=== PATIENT | female | born 1965 | race American Indian/Alaskan Native ===

== ENCOUNTER 2016-11-03 16:39 | Inpatient (IN) | payer OTHER ==
--- NOTE | 2016-11-03 17:21 | Event Note ---
Date: 11/03/16 Patient's EKG is reviewed. Demonstrates T-wave inversion in the lateral leads, nonspecific ST abnormality in the inferior leads. A stat right-sided EKG does not demonstrate evidence of inferior wall STEMI. The patient's clinical complaint of chest pain is somewhat concerning, but she has not actually diaphoretic, and has stable vital signs. The EKGs are transmitted to the transportation assistant, Dr. Tam, who agrees that the patient does not meet STEMI/thrombolysis criteria. Patient will be worked up for unstable angina. Has no pulmonary embolus or DVT risk factors is low risk by well's criteria, and has no contraindications to systemic anticoagulation. Cardiology states they can follow as a consult for possible unstable angina. Vital Signs 11/03/16 16:40 Temperature 98.8 F Pulse Rate 89 Respiratory 18 Rate Blood Pressure 191/107 O2 Sat by Pulse 100 Oximetry
[2016-11-03] MEDS ORDERED: ZOFRAN IV ONE (17:38)
[2016-11-03] MEDS ORDERED: NITROSTAT SL PRN (17:38)
[2016-11-03] MEDS ORDERED: MORPHINE IV ONE (17:38)
[2016-11-03] MEDS ORDERED: APRESOLINE IV ONE (17:38)
[2016-11-03] MEDS ORDERED: NACL ONE (17:39)
--- NOTE | 2016-11-03 17:39 | Emergency Department Report ---
ED General Adult HPI - General Chief complaint: Chest Pain Stated complaint: FELT LIKE HAVING HEART ATTACK Time Seen by Provider: 11/03/16 17:38 Source: patient, RN notes reviewed Mode of arrival: Ambulatory Limitations: No Limitations - History of Present Illness Initial comments: This is a 51-year-old female, previously unknown to me. Patient presents to the ER complaining of chest pain. The chest pain is in the left upper chest, radiates to the back, and left upper extremity. It is associated with shortness of breath. Patient missed mild epigastric abdominal pain. She reports a history of pleurisy. She reports a history of abnormal EKG. There is no hematemesis. There is no bright red blood per rectum. No history of intracranial bleeding. She reports that her pain is much improved compared to prior. An initial EKG was morphologically abnormal, right-sided EKG was also morphologically abnormal, but neither EKG was deemed to be consistent with STEMI. The EKGs were specifically transported to the biologist aide on-call, Dr. Tam, who agree that the patient did not meet catheterization lab criteria. He requested aspirin, nitroglycerin, heparin, beta blockers. He specifically did not want a Plavix load. -: Gradual Location: chest Radiation: back Quality: aching Consistency: intermittent Improves with: none Worsens with: none Associated Symptoms: chest pain, loss of appetite, shortness of breath, weakness - Related Data Home Medications Medication Instructions Recorded Confirmed Last Taken AtorvaSTATin 10 mg PO HS 11/03/16 11/03/16 Unknown Metoprolol 50 mg PO BID 11/03/16 11/03/16 Unknown Penicillin Vk 500 mg PO Q6HR 11/03/16 11/03/16 Unknown amLODIPine 10 mg PO DAILY 11/03/16 11/03/16 Unknown metFORMIN 500 mg PO DAILY 11/03/16 11/03/16 Unknown Allergies Allergy/AdvReac Type Severity Reaction Status Date / Time No Known Allergies Allergy Verified 11/03/16 20:09 ED Review of Systems ROS: Stated complaint: FELT LIKE HAVING HEART ATTACK Other details as noted in HPI Constitutional: malaise, weakness Eyes: denies: eye discharge ENT: denies: epistaxis Respiratory: shortness of breath Cardiovascular: chest pain, dyspnea on exertion Gastrointestinal: denies: hematemesis, hematochezia Genitourinary: denies: urgency, dysuria, discharge Musculoskeletal: back pain Skin: denies: lesions Neurological: weakness Psychiatric: anxiety ED Past Medical Hx - Past Medical History Hx Hypertension: Yes Hx Diabetes: Yes (boaderline) Hx Asthma: Yes - Surgical History Additional Surgical History: hysterectomy - Social History Smoking Status: Never Smoker Substance Use Type: Alcohol - Medications Home Medications: Home Medications Medication Instructions Recorded Confirmed Last Taken Type AtorvaSTATin 10 mg PO HS 11/03/16 11/03/16 Unknown History Metoprolol 50 mg PO BID 11/03/16 11/03/16 Unknown History Penicillin Vk 500 mg PO Q6HR 11/03/16 11/03/16 Unknown History amLODIPine 10 mg PO DAILY 11/03/16 11/03/16 Unknown History metFORMIN 500 mg PO DAILY 11/03/16 11/03/16 Unknown History ED Physical Exam - General Limitations: No Limitations General appearance: alert, in no apparent distress - Head Head exam: Present: atraumatic, normocephalic - Eye Eye exam: Present: normal appearance, EOMI. Absent: nystagmus - ENT ENT exam: Present: normal exam, normal orophraynx, mucous membranes moist, normal external ear exam - Neck Neck exam: Present: normal inspection, full ROM. Absent: tenderness, meningismus - Respiratory Respiratory exam: Present: normal lung sounds bilaterally. Absent: respiratory distress, wheezes, rales, rhonchi, stridor, chest wall tenderness - Cardiovascular Cardiovascular Exam: Present: regular rate, normal rhythm, normal heart sounds. Absent: bradycardia, tachycardia, irregular rhythm, systolic murmur, diastolic murmur, rubs, gallop - GI/Abdominal GI/Abdominal exam: Present: soft, tenderness, normal bowel sounds, pulsatile mass. Absent: distended, guarding - Extremities Exam Extremities exam: Present: normal inspection, full ROM, normal capillary refill. Absent: tenderness, pedal edema, joint swelling, calf tenderness - Back Exam Back exam: Present: normal inspection, full ROM. Absent: tenderness, CVA tenderness (R), CVA tenderness (L), muscle spasm, paraspinal tenderness, vertebral tenderness - Neurological Exam Neurological exam: Present: alert, oriented X3, normal gait, other (Extraocular movements intact. Tongue midline. No facial droop. Facial sensation intact to light touch in the V1, V2, V3 distribution bilaterally. 5 and 5 strength in 4 extremities.. Sensation is intact to light touch in 4 extremities.). Absent : motor sensory deficit - Psychiatric Psychiatric exam: Present: normal affect, normal mood - Skin Skin exam: Present: warm, dry, intact, normal color. Absent: rash ED Course Vital Signs 11/03/16 11/03/16 11/03/16 16:40 18:25 18:30 Temperature 98.8 F Pulse Rate 89 84 90 Respiratory 18 16 16 Rate Blood Pressure 191/107 Blood Pressure 151/89 176/113 [Left] O2 Sat by Pulse 100 95 Oximetry 11/03/16 11/03/16 21:28 23:00 Temperature Pulse Rate 74 74 Respiratory 16 16 Rate Blood Pressure Blood Pressure 143/78 149/82 [Left] O2 Sat by Pulse 95 95 Oximetry - Reevaluation(s) Reevaluation #1: 11/03/16 19:51 Differential diagnosis: Acute coronary syndrome, unstable angina, aortic disease /dissection, AAA, pulmonary embolus Assessment and plan: 51-year-old female with abnormal EKG, chest pain, upper abdominal pain, pulsatile abdominal discomfort. D-dimer is negative. Has decreased pain at this time. Cardiology already involved. My bedside ultrasound demonstrates a normal-appearing aorta. An angiogram is ordered and will be interpreted emergently. Assuming negative CT angiogram for aortic disease, patient will be admitted here for presumed acute coronary syndrome. Cardiology involved. We will withhold heparin drip until CT scan has been interpreted. Hospital physician, Dr. Leon, tentatively accepts the patient, assuming no surgical disease dementia noted on CT scan. 11/03/16 19:54 11/03/16 22:13 Reevaluation #2: 11/03/16 22:14 CT scan of the chest, abdomen, pelvis negative for surgical disease. The heparin drip was initiated. Dr. Friedman is going to admit. ED Medical Decision Making - Lab Data Result diagrams: 11/03/16 19:14 11/03/16 17:09 Vital Signs 11/03/16 11/03/16 11/03/16 16:40 18:25 18:30 Temperature 98.8 F Pulse Rate 89 84 90 Respiratory 18 16 16 Rate Blood Pressure 191/107 Blood Pressure 151/89 176/113 [Left] O2 Sat by Pulse 100 95 Oximetry Lab Results 11/03/16 11/03/16 11/03/16 Range/Units 17:09 17:09 17:09 WBC 7.3 (4.5-11.0) K/mm3 RBC 4.26 (3.65-5.03) M/mm3 Hgb 13.1 (10.1-14.3) gm/dl Hct 39.0 (30.3-42.9) % MCV 92 (79-97) fl MCH 31 (28-32) pg MCHC 34 (30-34) % RDW 12.8 L (13.2-15.2) % Plt Count 272 (140-440) K/mm3 Lymph % (Auto) 54.6 H (13.4-35.0) % [place] % (Auto) 7.6 H (0.0-7.3) % Eos % (Auto) 1.3 (0.0-4.3) % Baso % (Auto) 0.9 (0.0-1.8) % Lymph # 4.0 (1.2-5.4) K/mm3 [place] # 0.6 (0.0-0.8) K/mm3 Eos # 0.1 (0.0-0.4) K/mm3 Baso # 0.1 (0.0-0.1) K/mm3 Seg Neutrophils % 35.6 L (40.0-70.0) % Seg Neutrophils # 2.6 (1.8-7.7) K/mm3 PT 13.1 (12.2-14.9) Sec. INR 1.00 (0.87-1.13) APTT 50.5 H (24.2-36.6) Sec. D-Dimer 135.00 (0-234) ng/mlDDU Sodium 141 (137-145) mmol/L Potassium 3.8 (3.6-5.0) mmol/L Chloride 98.7 (98-107) mmol/L Carbon Dioxide 26 (22-30) mmol/L Anion Gap 20 mmol/L BUN 20 H (7-17) mg/dL Creatinine 0.7 (0.7-1.2) mg/dL Estimated GFR > 60 ml/min BUN/Creatinine Ratio 28.57 % Glucose 91 (65-100) mg/dL Calcium 9.9 (8.4-10.2) mg/dL Troponin T 0.422 H* (0.00-0.029) ng/mL Triglycerides 232 H (2-149) mg/dL Cholesterol 246 H (50-199) mg/dL LDL Cholesterol Direct 146 H (50-130) mg/dL HDL Cholesterol 54 (40-59) mg/dL Cholesterol/HDL Ratio 4.55 % 11/03/16 11/03/16 Range/Units 19:14 19:14 WBC (4.5-11.0) K/mm3 RBC (3.65-5.03) M/mm3 Hgb 12.7 (10.1-14.3) gm/dl Hct 36.9 (30.3-42.9) % MCV (79-97) fl MCH (28-32) pg MCHC (30-34) % RDW (13.2-15.2) % Plt Count 265 (140-440) K/mm3 Lymph % (Auto) (13.4-35.0) % [place] % (Auto) (0.0-7.3) % Eos % (Auto) (0.0-4.3) % Baso % (Auto) (0.0-1.8) % Lymph # (1.2-5.4) K/mm3 [place] # (0.0-0.8) K/mm3 Eos # (0.0-0.4) K/mm3 Baso # (0.0-0.1) K/mm3 Seg Neutrophils % (40.0-70.0) % Seg Neutrophils # (1.8-7.7) K/mm3 PT 13.0 (12.2-14.9) Sec. INR 0.99 (0.87-1.13) APTT 51.1 H (24.2-36.6) Sec. D-Dimer (0-234) ng/mlDDU Sodium (137-145) mmol/L Potassium (3.6-5.0) mmol/L Chloride (98-107) mmol/L Carbon Dioxide (22-30) mmol/L Anion Gap mmol/L BUN (7-17) mg/dL Creatinine (0.7-1.2) mg/dL Estimated GFR ml/min BUN/Creatinine Ratio % Glucose (65-100) mg/dL Calcium (8.4-10.2) mg/dL Troponin T (0.00-0.029) ng/mL Triglycerides (2-149) mg/dL Cholesterol (50-199) mg/dL LDL Cholesterol Direct (50-130) mg/dL HDL Cholesterol (40-59) mg/dL Cholesterol/HDL Ratio % - EKG Data 11/03/16 19:52 EKG #1 demonstrates normal sinus, 86 beats per minute, T-wave inversions in the lateral leads, T-wave inversions in the inferior leads, nonspecific ST abnormality. Not morphologically consistent with STEMI. EKG #2 (right-sided leads), not consistent with STEMI. Normal sinus, 79 bpm, T- wave inversion 2, 3, aVF, lateral T wave inversions, poor R progression, not morphologically consistent with STEMI. Both of the aforementioned EKGs are independently evaluated by interventional cardiology. - Radiology Data Radiology results: report reviewed, image reviewed CT scan of the chest, abdomen, pelvis: No acute disease. Aorta within normal limits. Critical Care Time: Yes Critical care time in (mins) excluding proc time.: 45 Critical care attestation.: If time is entered above; I have spent that time in minutes in the direct care of this critically ill patient, excluding procedure time. Critical Care Time: Critical care time includes multiple bedside evaluations, interpretation of laboratory studies, radiology studies, time spent managing a patient with presumed acute coronary syndrome, requiring discussion with cardiology, hospital medicine, and initiation of heparin drip. This excludes procedure time. ED Disposition Clinical Impression: NSTEMI (non-ST elevated myocardial infarction) Disposition: OP ADMITTED IP TO THIS HOSP Is pt being admited?: Yes Condition: Good
[2016-11-03 17:49] LABS: Basophils % (Auto) 0.9 % (0.0-1.8); Eosinophils % (Auto) 1.3 % (0.0-4.3); Hemoglobin 13.1 gm/dl (10.1-14.3); Mean Corpuscular HGB Conc 34 % (30-34); Mean Corpuscular Hemoglobin 31 pg (28-32); Mean Corpuscular Volume 92 fl (79-97); Platelet Count 272 K/mm3 (140-440); Red Blood Count 4.26 M/mm3 (3.65-5.03); Red Cell Distribution Width 12.8 % (13.2-15.2); White Blood Count 7.3 K/mm3 (4.5-11.0)
[2016-11-03 18:00] LABS: Partial Thromboplastin Time 50.5 Sec. (24.2-36.6)
[2016-11-03 18:11] LABS: Anion Gap 20 mmol/L; BUN/Creatinine Ratio 28.57; Blood Urea Nitrogen 20 mg/dL (7-17); Calcium 9.9 mg/dL (8.4-10.2); Carbon Dioxide 26 mmol/L (22-30); Chloride 98.7 mmol/L (98-107); Glucose 91 mg/dL (65-100); Potassium 3.8 mmol/L (3.6-5.0); Sodium 141 mmol/L (137-145)
[2016-11-03] MEDS ORDERED: HEPARIN 10,000 UNITS/10 ML IV ONE (18:27)
[2016-11-03] MEDS ORDERED: BABY ASPIRIN PO ONE (18:28)
--- NOTE | 2016-11-03 18:36 | Admit Criteria Form ---
Admission Criteria Documentation: MYOCARDIAL INFARCTION Clinical Indications for Admission to Inpatient Care (Place 'X' for any and all applicable criteria): Admission is indicated for ANY ONE of the following (1)(2)(3)(4): [ ]I. Acute CT [X]II. Contraindications and/or Inappropriate clinical situations for Observational Care in patients with Myocardial Infarction, when ANY ONE of the following is required: [ ]a) Patient with High risk of cardiac embolism (e.g, patients with previous cardiac embolism, LVEF < 40%, age >75 and patients with prosthetic valve) 18 [X]b) Patient with Moderate risk including DM patient, CAD and patient aged 65-75 18 [X]c) Patient with any change in cardiac biomarker especially troponin should be managed as high risk in an inpatient setting 19 [ ]d) Physician judgement irrespective of ECG and other diagnostic findings 20 [X]III.General contraindications and/or Inappropriate clinical situations for Observational Care in patients with Myocardial Infarction, when ANY ONE of the following is required: [X]a) Prediction of prolongation of LOS based on ANY ONE of the following may be considered as a contraindication for observational care 2, 3, 4, 5, 6, 7, 8, 9, 10, 11 [ ]i) Age > 65 yrs. [ ]ii) Patient arriving by ambulance [ ]iii) Patient with high acuity [ ]iv) Patient requiring vital sign monitoring [X]v) Patient on IV medication [ ]b) Systolic blood pressures 180mmHg 3,12 [ ]c) Patient with altered mental status including delirium and other alteration of consciousness, (3) [ ]d) Patient whose discharge disposition will be to a [facility]p home or rehabilitation home should not be managed in Emergency Department Observation Unit. CMS rule requires 3 days hospital stay before such placement. 3,13 [ ]e) Patient with failure to thrive due to broad array of etiologies 3 ,16,17 [ ]f) Inability to ambulate 3,14 Extended stay beyond goal length of stay may be needed for (1)(18)(20)(24)(25): [ ]a) Hemodynamic instability, persisting symptoms after intensive medical management, or recurring severe, prolonged symptoms [ ]b) Intravascular procedural complications such as acute vessel closure, stent thrombosis, stent malposition, or vessel dissection (26)(27)(28) [ ]c) Extravascular procedural complications such as retroperitoneal hematoma , pericardial effusion, or cardiac tamponade [ ]d) Entry site complications causing bleeding, hematoma or distal ischemia and requiring ongoing monitoring, surgical repair or surgical thrombectomy(29) [ ]e) Dangerous arrhythmia [ ]f) Complicated percutaneous coronary intervention (e.g., unsuccessful percutaneous coronary intervention or percutaneous coronary intervention of non- [place] vessel) [ ]g) Urgent or emergent surgery for complications of CT (e.g., ventricular rupture, valvular insufficiency) [ ]h) Surgical revascularization via coronary artery bypass graft [ ]i) Heart failure (e.g., pulmonary edema) [ ]j) Unstable pulmonary comorbidities, including COPD or pneumonia (31) [ ]k) Acute renal failure The original [employer] content created by [employer] has been revised. The portions of the content which have been revised are identified through the use of italic text or in bold, and [facility] [employer] has neither reviewed nor approved the modified material. All other unmodified content is copyright [employer] [facility] Please see references footnoted in the original [facility] edition 2016 Admission Criteria Met: Yes
[2016-11-03 18:51] LABS: Cholesterol 246 mg/dL (50-199); HDL Cholesterol 54 mg/dL (40-59); LDL Cholesterol,Direct 146 mg/dL (50-130); Triglycerides 232 mg/dL (2-149)
[2016-11-03] MEDS ORDERED: HEPARIN/ 0.45% NACL-25,000 UNIT/500 ML 25,000 UNIT/500 ML BAG IV SCH (19:00)
[2016-11-03 19:29] LABS: Hematocrit 36.9 % (30.3-42.9); Hemoglobin 12.7 gm/dl (10.1-14.3)
[2016-11-03 19:40] LABS: INR 0.99 (0.87-1.13)
[2016-11-03 19:41] LABS: Partial Thromboplastin Time 51.1 Sec. (24.2-36.6)
[2016-11-03] MEDS ORDERED: LOPRESSOR IV ONE (20:19)
--- NOTE | 2016-11-03 20:46 | Cat Scan Report ---
FINAL REPORT EXAM: CT ANGIO CHEST HISTORY: cp TECHNIQUE: CTA angiogram of the chest was imaged at 2.5 mm axial increments through the chest. Sagittal and coronal reconstructions were obtained. Oblique coronal MIP images were also obtained. PRIORS: None. FINDINGS: Aorta: The thoracic aorta shows no significant abnormality. No evidence for dissection or tear is seen. No extravasation of contrast is noted. Aorta is normal in caliber without evidence for aneurysm. Pulmonary arteries and veins: There is no evidence for extravasation of contrast to suggest an arterial or venous tear. Pulmonary arteries and veins appear normal. No evidence for pulmonary embolism is seen. Mediastinum: No evidence for mediastinal hematoma is seen. Major arteries extending off the arch of the aorta superiorly are normal without evidence for dissection or tear. The venous structures in the upper mediastinum are also intact. Lung parenchyma: The lungs are expanded and clear without evidence for pneumothorax, parenchymal contusion, or pleural effusion. A tiny pleural based 2 mm nodule in the lateral aspect of the right major fissure is noted, likely a normal fissural lymph node. Chest wall: No pleural abnormality is identified. Bony structures: No evidence for fracture is seen. Upper abdomen structures: The visualized upper abdominal viscera appear normal without evidence for rupture or hematoma. The visualized upper abdominal aorta is intact without evidence for dissection or tear. Gallstones in the gallbladder are noted. IMPRESSION: No evidence for vascular abnormality. There is no evidence for aortic aneurysm, dissection, aortic tear, or mediastinal hematoma. Lung [place] are clear and normal. No bony fracture is seen.
--- NOTE | 2016-11-03 20:54 | Cat Scan Report ---
FINAL REPORT EXAM: CT ANGIO ABDOMEN PELVIS HISTORY: cp TECHNIQUE: Standard enhanced CT of the abdomen and pelvis. Coronal and sagittal reconstruction was also performed. Coronal and sagittal MIP images were obtained through the aorta. Contrast: 100 mL Omnipaque 350 given IV. PRIORS: None. FINDINGS: The abdominal aorta is normal caliber without evidence for aneurysm. No evidence for dissection or tear is seen. No periaortic hematoma is noted. No significant atherosclerotic changes present in the aorta. The major abdominal arteries extending off the aorta are widely patent. Within the abdomen, the liver, spleen, pancreas, adrenal glands, and kidneys are unremarkable. Gallstones are noted in the gallbladder. No evidence for retroperitoneal or pelvic lymphadenopathy is seen. The bowel loops have normal caliber. No soft tissue mass, fluid collection, inflammatory change, or free air is seen within the abdomen or pelvis. The appendix is normal. Within the pelvis, the bladder is unremarkable. The uterus is normal. No evidence for mass or lymphadenopathy is seen in the pelvis. Images through the upper abdomen include the lung bases which are expanded and clear. Bony structures show no focal abnormalities and are intact. IMPRESSION: 1. Normal abdominal aorta without evidence for aneurysm, dissection, or rupture. 2. Cholelithiasis 3. no acute intra-abdominal process noted.
[2016-11-03] MEDS ORDERED: DILAUDID ONE (23:09)
[2016-11-03] MEDS ORDERED: DILAUDID IV ONE (23:16)
--- NOTE | 2016-11-03 23:16 | Event Note ---
Date: 11/03/16 See H/p in reports NSTEMI HTN T2DM HLD Obesity
[2016-11-03] MEDS ORDERED: ALUM-MAG HYDROX-SIMETH 200-200-20MG/5ML PO PRN (23:19)
[2016-11-03] MEDS ORDERED: MILK OF MAGNESIA PO PRN (23:19)
[2016-11-03] MEDS ORDERED: DILAUDID IV PRN (23:19)
[2016-11-03] MEDS ORDERED: D50W (25GM) IV PRN (23:19)
[2016-11-03] MEDS ORDERED: DULCOLAX PR PRN (23:19)
[2016-11-03] MEDS ORDERED: SODIUM CHLORIDE FLUSH SYRINGE 10 ML IV PRN (23:27)
[2016-11-03] MEDS ORDERED: NON-FORMULARY (Metoprolol 50 MG) PO SCH (23:30)
[2016-11-03] MEDS ORDERED: NACL 0.9% 1000 ML 1,000 ML IV SCH (23:45)
[2016-11-04 05:33] LABS: Hematocrit 42.2 % (30.3-42.9); Mean Corpuscular HGB Conc 33 % (30-34); Mean Corpuscular Hemoglobin 31 pg (28-32); Mean Corpuscular Volume 93 fl (79-97); Platelet Count 260 K/mm3 (140-440); Red Blood Count 4.55 M/mm3 (3.65-5.03); Red Cell Distribution Width 13.3 % (13.2-15.2); White Blood Count 8.5 K/mm3 (4.5-11.0)
[2016-11-04 06:00] LABS: Creatine Kinase MB 3.3 ng/mL (0.0-4.0)
[2016-11-04 06:01] LABS: Alanine Aminotransferase 14 units/L (7-56); Albumin 3.7 g/dL (3.9-5); Albumin/Globulin Ratio 1.1 %; Alkaline Phosphatase 101 units/L (35-129); BUN/Creatinine Ratio 27.14; Bilirubin,Total 0.2 mg/dL (0.1-1.2); Blood Urea Nitrogen 19 mg/dL (7-17); Calcium 9.2 mg/dL (8.4-10.2); Carbon Dioxide 25 mmol/L (22-30); Chloride 101.3 mmol/L (98-107); Glucose 98 mg/dL (65-100); Potassium 3.9 mmol/L (3.6-5.0); Sodium 138 mmol/L (137-145); Total Protein 7.2 g/dL (6.3-8.2)
[2016-11-04 06:07] LABS: Anion Gap 16 mmol/L
[2016-11-04] MEDS: DILAUDID IV PRN ×3 (07:00→21:30)
[2016-11-04 07:09] LABS: Basophils % (Manual) 0 % (0.0-1.8); Blastocytes % (Manual) 0 %
[2016-11-04 07:10] LABS: Anisocytosis 1+; Diff Status Complete; Large Platelets Few
[2016-11-04] MEDS ORDERED: GLUCOPHAGE PO SCH (08:00)
[2016-11-04] MEDS: NOVOLOG SUB-Q SCH ×4 (08:30→22:33)
--- NOTE | 2016-11-04 08:52 | Progress Note ---
Assessment and Plan Assessment and plan: NSTEMI. She was taken to cardiac label printing machinist today. She had successful PCI of the mid RCA, subtotal occlusion >99% to 0% with restored CARMEN 3 flow. Cartilage recommended Aggrastat for 48 hours due to extensive intraluminal thrombus. Heparin was discontinued. She is now on aspirin Plavix Aggrastat metoprolol and Imdur. No chest pain currently. Hypertension. Continue metoprolol and Imdur Borderline diabetes mellitus type 2. Her A1C = 6.2 Hyperlipidemia DVT prophylaxis. Was on Heparin drip, now apprastat Full CODE STATUS History Interval history: Patient with NSTEMI less shortness of breath, less epigastric pain Hospitalist Physical - Physical exam Narrative exam: Gen appearance : Not in acute distress,obese HEENT: Normocephalic atraumatic Neck: supple, no JVD. Lungs: Decreased breath sounds bilaterally, Heart: S1 and S2 regular, no murmurs, rubs or gallop Abdomen: soft, non-tender, non-distended, normal bowel sounds Extremities: No edema, no clubbing or cyanosis Neuro : Awake alert oriented 3, no focal signs skin: no rashes Psych: appropriate mood - Constitutional Vitals: Temp Pulse Resp BP Pulse Ox 97 F L 70 16 124/72 98 11/04/16 00:20 11/04/16 07:11 11/04/16 07:11 11/04/16 07:11 11/04/16 08:37 Results - Labs CBC & Chem 7: 11/05/16 04:24 11/05/16 04:24 Labs: Laboratory Last Values WBC 8.5 K/mm3 (4.5-11.0) 11/04/16 04:43 RBC 4.55 M/mm3 (3.65-5.03) 11/04/16 04:43 Hgb 14.0 gm/dl (10.1-14.3) 11/04/16 04:43 Hct 42.2 % (30.3-42.9) 11/04/16 04:43 MCV 93 fl (79-97) 11/04/16 04:43 MCH 31 pg (28-32) 11/04/16 04:43 MCHC 33 % (30-34) 11/04/16 04:43 RDW 13.3 % (13.2-15.2) 11/04/16 04:43 Plt Count 260 K/mm3 (140-440) 11/04/16 04:43 Lymph % (Auto) Producer Director 11/04/16 04:43 [place] % (Auto) 7.6 % (0.0-7.3) H 11/03/16 17:09 Eos % (Auto) 1.3 % (0.0-4.3) 11/03/16 17:09 Baso % (Auto) 0.9 % (0.0-1.8) 11/03/16 17:09 Lymph # Producer Director 11/04/16 04:43 [place] # 0.6 K/mm3 (0.0-0.8) 11/03/16 17:09 Eos # 0.1 K/mm3 (0.0-0.4) 11/03/16 17:09 Baso # 0.1 K/mm3 (0.0-0.1) 11/03/16 17:09 Add Manual Diff Complete 11/04/16 04:43 Total Counted 100 11/04/16 04:43 Seg Neutrophils % Producer Director 11/04/16 04:43 Seg Neuts % (Manual) 37.0 % (40.0-70.0) L 11/04/16 04:43 Band Neutrophils % 6.0 % 11/04/16 04:43 Lymphocytes % (Manual) 45.0 % (13.4-35.0) H 11/04/16 04:43 Reactive Lymphs % (Man) 0 % 11/04/16 04:43 Monocytes % (Manual) 5.0 % (0.0-7.3) 11/04/16 04:43 Eosinophils % (Manual) 5.0 % (0.0-4.3) H 11/04/16 04:43 Basophils % (Manual) 0 % (0.0-1.8) 11/04/16 04:43 Metamyelocytes % 2.0 % 11/04/16 04:43 Myelocytes % 0 % 11/04/16 04:43 Promyelocytes % 0 % 11/04/16 04:43 Blast Cells % 0 % 11/04/16 04:43 Nucleated RBC % Not Reportable 11/04/16 04:43 Seg Neutrophils # 2.6 K/mm3 (1.8-7.7) 11/03/16 17:09 Seg Neutrophils # Man 3.1 K/mm3 (1.8-7.7) 11/04/16 04:43 Band Neutrophils # 0.5 K/mm3 11/04/16 04:43 Lymphocytes # (Manual) 3.8 K/mm3 (1.2-5.4) 11/04/16 04:43 Abs React Lymphs (Man) 0.0 K/mm3 11/04/16 04:43 Monocytes # (Manual) 0.4 K/mm3 (0.0-0.8) 11/04/16 04:43 Eosinophils # (Manual) 0.4 K/mm3 (0.0-0.4) 11/04/16 04:43 Basophils # (Manual) 0.0 K/mm3 (0.0-0.1) 11/04/16 04:43 Metamyelocytes # 0.2 K/mm3 11/04/16 04:43 Myelocytes # 0.0 K/mm3 11/04/16 04:43 Promyelocytes # 0.0 K/mm3 11/04/16 04:43 Blast Cells # 0.0 K/mm3 11/04/16 04:43 WBC Morphology Not Reportable 11/04/16 04:43 Hypersegmented Neuts Not Reportable 11/04/16 04:43 Hyposegmented Neuts Not Reportable 11/04/16 04:43 Hypogranular Neuts Not Reportable 11/04/16 04:43 Smudge Cells Not Reportable 11/04/16 04:43 Toxic Granulation Not Reportable 11/04/16 04:43 Toxic Vacuolation Not Reportable 11/04/16 04:43 Dohle Bodies Not Reportable 11/04/16 04:43 Pelger-Huet Anomaly Not Reportable 11/04/16 04:43 Adiel Rods Not Reportable 11/04/16 04:43 Platelet Estimate Appears normal 11/04/16 04:43 Clumped Platelets Not Reportable 11/04/16 04:43 Plt Clumps, EDTA Not Reportable 11/04/16 04:43 Large Platelets Few 11/04/16 04:43 Giant Platelets Not Reportable 11/04/16 04:43 Platelet Satelliting Not Reportable 11/04/16 04:43 Plt Morphology Comment Not Reportable 11/04/16 04:43 RBC Morphology Not Reportable 11/04/16 04:43 Dimorphic RBCs Not Reportable 11/04/16 04:43 Polychromasia Not Reportable 11/04/16 04:43 Hypochromasia Not Reportable 11/04/16 04:43 Poikilocytosis Not Reportable 11/04/16 04:43 Anisocytosis 1+ 11/04/16 04:43 Microcytosis Not Reportable 11/04/16 04:43 Macrocytosis Not Reportable 11/04/16 04:43 Spherocytes Not Reportable 11/04/16 04:43 Pappenheimer Bodies Not Reportable 11/04/16 04:43 Sickle Cells Not Reportable 11/04/16 04:43 Target Cells Not Reportable 11/04/16 04:43 Tear Drop Cells Not Reportable 11/04/16 04:43 Ovalocytes Not Reportable 11/04/16 04:43 Helmet Cells Not Reportable 11/04/16 04:43 [place] Bodies Not Reportable 11/04/16 04:43 [place] Rings Not Reportable 11/04/16 04:43 R[place] Cells Not Reportable 11/04/16 04:43 Bite Cells Not Reportable 11/04/16 04:43 Crenated Cell Not Reportable 11/04/16 04:43 Elliptocytes Not Reportable 11/04/16 04:43 Acanthocytes (Spur) Not Reportable 11/04/16 04:43 Rouleaux Not Reportable 11/04/16 04:43 Hemoglobin C Crystals Not Reportable 11/04/16 04:43 Schistocytes Not Reportable 11/04/16 04:43 Malaria parasites Not Reportable 11/04/16 04:43 James Bodies Not Reportable 11/04/16 04:43 Hem Pathologist Commnt No 11/04/16 04:43 PT 13.0 Sec. (12.2-14.9) 11/03/16 19:14 INR 0.99 (0.87-1.13) 11/03/16 19:14 APTT 51.1 Sec. (24.2-36.6) H 11/03/16 19:14 D-Dimer 135.00 ng/mlDDU (0-234) 11/03/16 17:09 Heparin Anti-Xa Level 0.58 U.I./ml (0.3-0.7) 11/04/16 04:43 Sodium 138 mmol/L (137-145) 11/04/16 04:43 Potassium 3.9 mmol/L (3.6-5.0) 11/04/16 04:43 Chloride 101.3 mmol/L (98-107) 11/04/16 04:43 Carbon Dioxide 25 mmol/L (22-30) 11/04/16 04:43 Anion Gap 16 mmol/L 11/04/16 04:43 BUN 19 mg/dL (7-17) H 11/04/16 04:43 Creatinine 0.7 mg/dL (0.7-1.2) 11/04/16 04:43 Estimated GFR > 60 ml/min 11/04/16 04:43 BUN/Creatinine Ratio 27.14 % 11/04/16 04:43 Glucose 98 mg/dL (65-100) 11/04/16 04:43 Hemoglobin A1c 6.2 % (4-6) H 11/04/16 04:43 Calcium 9.2 mg/dL (8.4-10.2) 11/04/16 04:43 Total Bilirubin 0.2 mg/dL (0.1-1.2) 11/04/16 04:43 AST 23 units/L (5-40) 11/04/16 04:43 ALT 14 units/L (7-56) 11/04/16 04:43 Alkaline Phosphatase 101 units/L (35-129) 11/04/16 04:43 Total Creatine Kinase 85 units/L (30-135) 11/04/16 04:43 CK-MB (CK-2) 3.3 ng/mL (0.0-4.0) 11/04/16 04:43 CK-MB (CK-2) Rel Index 3.8 (0-4) 11/04/16 04:43 Troponin T 0.338 ng/mL (0.00-0.029) H* 11/04/16 04:43 Total Protein 7.2 g/dL (6.3-8.2) 11/04/16 04:43 Albumin 3.7 g/dL (3.9-5) L 11/04/16 04:43 Albumin/Globulin Ratio 1.1 % 11/04/16 04:43 Triglycerides 232 mg/dL (2-149) H 11/03/16 17:09 Cholesterol 246 mg/dL (50-199) H 11/03/16 17:09 LDL Cholesterol Direct 146 mg/dL (50-130) H 11/03/16 17:09 HDL Cholesterol 54 mg/dL (40-59) 11/03/16 17:09 Cholesterol/HDL Ratio 4.55 % 11/03/16 17:09
--- NOTE | 2016-11-04 09:08 | History and Physical Report ---
CHIEF COMPLAINT: Left-sided chest pain. HISTORY OF PRESENT ILLNESS: A 51-year-old -[place] female who comes in for left-sided chest pain with radiation to the back and the left upper extremity, also associated with shortness of breath. The patient also has some mild epigastric abdominal pain. The patient had an abnormal EKG and was deemed to be consistent with STEMI and red mud thickener operator on-call was called, but apparently the EKG and the clinical presentation did not meet the criteria for STEMI. The patient is still complaining of chest pain. Pain is about 8 on a scale of 1-10. No diaphoresis. No palpitations. Slight shortness of breath present. PAST MEDICAL HISTORY: Present for hypertension, diabetes, and asthma. PAST SURGICAL HISTORY: Hysterectomy. SOCIAL HISTORY: Socially, she does not smoke. No alcohol. FAMILY HISTORY: Significant for hypertension. REVIEW OF SYSTEMS: CONSTITUTIONAL: No fever, no chills. No weight loss, no weight gain. HEENT: No sore throat. No postnasal drip. NECK: No neck pain. CARDIOVASCULAR AND RESPIRATORY: As mentioned in history of present illness. No cough, no wheezing. Left-sided chest pain with radiation to the back and left upper extremity present. Pain is about 8 on a scale of 1-10. GASTROINTESTINAL: No nausea, no vomiting, no diarrhea. Slight epigastric pain present. MUSCULOSKELETAL: No joint pains. No muscle pains. SKIN: No rashes. PSYCHIATRIC: No depression. ENDOCRINE: No polyphagia, polyuria, or polydipsia. A 14-point review of systems done, other than history of present illness. Review of systems is essentially negative. PHYSICAL EXAMINATION: VITAL SIGNS: On examination, middle-aged female, cooperative during examination. Lying comfortably. Blood pressure is 191/107, it came down to 151/89, temperature is 98.8, pulse is 89, respirations are 18, O2 sats 100%. HEENT: Unremarkable. Pupils equal and reactive. NECK: Supple, no lymphadenopathy, no thyromegaly. LUNGS: Clear to auscultation and percussion. Good air entry. CARDIOVASCULAR: S1, S2 heard. No gallop, no murmur, no rub. Apical impulse in the left fifth intercostal space and midclavicular line. ABDOMEN: Soft and benign. No hepatosplenomegaly. No guarding, no rigidity. Hernial orifices are normal. EXTREMITIES: Good pedal pulses. No pedal edema. CENTRAL NERVOUS SYSTEM: Alert and oriented x4, nonfocal exam. SKIN: Normal. LABORATORY DATA AND EKG: EKG shows normal sinus rhythm, 86 beats per minute, T-wave inversions in the lateral leads and T-wave inversions in inferior leads, nonspecific ST-T wave abnormalities. EKG #2 shows T-wave inversions in II, III, aVF and lateral T-wave inversions. Poor progression. CT of the chest and abdomen, no acute disease. Labs significant for white count of 7300, pro-time is 13, and INR as 0.99. Electrolytes are normal. BUN and creatinine are 20 and 0.7. Troponin is 0.383. CK is 85 and CK-MB is 3.3, and CK-MB relative index is 3.8. Total protein is 7.2, triglycerides at 232. Cholesterol is 246. LDL cholesterol is 146. ASSESSMENT AND PLAN: 1. Non-ST elevation myocardial infarction, the patient started on IV heparin. Troponin is high, but the CK's are not high. CK's was not impressive at all. A question of NSTEMI arises. We will continue IV heparin. We will defer to Cardiology regarding CAT versus a stress test. 2. Hypertension. Continue antihypertensive medicines in the form of amlodipine 10 mg daily and metoprolol 50 mg p.o. b.i.d. 3. Non-insulin dependent diabetes type 2, T2DM. Continue metformin and coverage. 4. Hyperlipidemia. Continue atorvastatin 10 mg p.o. at bedtime. 5. Deep venous thrombosis prophylaxis. The patient already on heparin. CRITICAL CARE STATEMENT: The patient's condition involved an intervention and data interpretation. Critical care time involved was about 32 minutes. JOB# [id number] VSM/NTS
--- NOTE | 2016-11-04 09:10 | XRay Report ---
CHEST 2 VIEWS: INDICATION: Chest pain. COMPARISON: None similar. FINDINGS: Frontal and lateral chest radiographs demonstrate limited inspiration with mild exaggerated cardiomediastinal silhouette/possible cardiomegaly. Grossly clear lungs. Unremarkable bones. CONCLUSION: Hypoinflation and exaggerated heart size, as described. Thank you for the opportunity to participate in this patient's care.
[2016-11-04] MEDS ORDERED: NON-FORMULARY (Amlodipine 10 MG) PO SCH (10:00)
[2016-11-04] MEDS ORDERED: NON-FORMULARY (Metformin 500 MG) PO SCH (10:00)
[2016-11-04] MEDS: NORVASC PO SCH (11:00)
[2016-11-04] MEDS ORDERED: ECOTRIN PO ONE (11:08)
[2016-11-04] MEDS: ECOTRIN PO SCH (11:10)
[2016-11-04] MEDS ORDERED: HEPARIN/NS 5000 UNIT/500ML(CATH LAB) 1,000 ML IR ONE ×2 (11:57→13:28)
[2016-11-04] MEDS ORDERED: XYLOCAINE 2% INFILTRATI ONE ×2 (11:58→13:29)
[2016-11-04] MEDS ORDERED: VERSED ONE ×2 (11:58→13:28)
[2016-11-04] MEDS ORDERED: CALAN ONE (11:58)
[2016-11-04] MEDS ORDERED: SUBLIMAZE ONE ×2 (11:58→13:29)
[2016-11-04] MEDS ORDERED: HEPARIN 10,000 UNITS/10 ML ONE ×2 (11:58→13:28)
[2016-11-04] MEDS ORDERED: NITROGLYCERIN SYRINGE 3 ML ONE ×3 (11:59→14:42)
[2016-11-04] MEDS ORDERED: NACL 0.9% 500 ML 500 ML ONE (12:24)
[2016-11-04] MEDS: LOPRESSOR PO SCH ×2 (12:34→22:01)
[2016-11-04] MEDS: NACL 0.9% 500 ML 500 ML IV SCH ×2 (12:36→13:30)
[2016-11-04] MEDS ORDERED: PLAVIX ONE (13:19)
[2016-11-04] MEDS ORDERED: PLAVIX PO ONE (13:23)
--- NOTE | 2016-11-04 13:53 | Consultation ---
History of Present Illness Consult date: 11/04/16 Consult reason: elevated troponin History of present illness: 51 year old female presenting with chest pain and NSTEMI. Past History Past Medical History: diabetes, hypertension, hyperlipidemia Past Surgical History: No surgical history Social history: no significant social history Family history: hypertension Medications and Allergies Allergies Allergy/AdvReac Type Severity Reaction Status Date / Time No Known Allergies Allergy Verified 11/03/16 20:09 Home Medications Medication Instructions Recorded Confirmed Last Taken Type AtorvaSTATin 10 mg PO HS 11/03/16 11/03/16 Unknown History Metoprolol 50 mg PO BID 11/03/16 11/03/16 Unknown History Penicillin Vk 500 mg PO Q6HR 11/03/16 11/03/16 Unknown History amLODIPine 10 mg PO DAILY 11/03/16 11/03/16 Unknown History metFORMIN 500 mg PO DAILY 11/03/16 11/03/16 Unknown History Active Meds: Active Medications Al Hydrox/Mg Hydrox/Simethicone (Alum-Mag Hydrox-Simeth [id number]/5ml) 30 ml PO Q4H PRN PRN Reason: Indigestion Amlodipine Besylate (Norvasc) 10 mg PO DAILY JANELLE Last Admin: 11/04/16 11:00 Dose: Not Given Aspirin (Ecotrin) 325 mg PO QDAY JANELLE Last Admin: 11/04/16 11:10 Dose: 325 mg Atorvastatin Calcium (Lipitor) 10 mg PO QHS JANELLE Bisacodyl (Dulcolax) 10 mg SD QDAY PRN PRN Reason: constipation unrelieved by MOM Dextrose (D50w (25gm)) 50 ml IV PRN PRN PRN Reason: Hypoglycemia Hydromorphone HCl (Dilaudid) 1 mg IV Q3H PRN PRN Reason: Pain , Severe (7-10) Last Admin: 11/04/16 07:00 Dose: 1 mg Heparin Sodium/Sodium Chloride (Heparin/ 0.45% Nacl-25,000 Unit/500 Ml) 25,000 unit in 500 mls @ 20 mls/hr IV TITRATE JANELLE; 1,000 UNITS/HR PRN Reason: Protocol Last Admin: 11/03/16 21:12 Dose: 1,000 units/hr, 20 mls/hr Sodium Chloride (Nacl 0.9% 1000 Ml) 1,000 mls @ 75 mls/hr IV DIRECT JANELLE Last Admin: 11/04/16 01:29 Dose: 75 mls/hr Sodium Chloride (Nacl 0.9% 500 Ml) 500 mls @ 50 mls/hr IV DIRECT [facility] Last Admin: 11/04/16 13:30 Dose: 50 mls/hr Insulin Aspart (Novolog) 0 units SUB-Q ACHS JANELLE PRN Reason: Protocol Last Admin: 11/04/16 12:39 Dose: Not Given Magnesium Hydroxide (Milk Of Magnesia) 30 ml PO Q4H PRN PRN Reason: Constipation Metoprolol Tartrate (Lopressor) 50 mg PO BID JANELLE Last Admin: 11/04/16 12:34 Dose: Not Given Nitroglycerin (Nitrostat) 0.4 mg SL .Q5MIN PRN PRN Reason: Chest Pain Last Admin: 11/04/16 06:59 Dose: 0.4 mg Sodium Chloride (Sodium Chloride Flush Syringe 10 Ml) 10 ml IV PRN PRN PRN Reason: LINE FLUSH Review of Systems All systems: negative Physical Examination Vital Signs Temp Pulse Resp BP Pulse Ox 98.8 F 89 18 191/107 100 11/03/16 16:40 11/03/16 16:40 11/03/16 16:40 11/03/16 16:40 11/03/16 16:40 General appearance: no acute distress HEENT: Positive: PERRL Neck: Positive: neck supple Cardiac: Positive: Reg Rate and Rhythm Lungs: Positive: Normal Exam Neuro: Positive: Grossly Intact Abdomen: Positive: Soft Extremities: Present: normal Results 11/04/16 04:43 11/04/16 04:43 Cardiac Enzymes 11/04/16 11/04/16 Range/Units 04:43 04:43 AST 23 (5-40) units/L CK-MB (CK-2) 3.3 (0.0-4.0) ng/mL CBC 11/04/16 Range/Units 04:43 WBC 8.5 (4.5-11.0) K/mm3 RBC 4.55 (3.65-5.03) M/mm3 Hgb 14.0 (10.1-14.3) gm/dl Hct 42.2 (30.3-42.9) % Plt Count 260 (140-440) K/mm3 Lymph # Hospitalist Physician Comprehensive Metabolic Panel 11/04/16 Range/Units 04:43 Sodium 138 (137-145) mmol/L Potassium 3.9 (3.6-5.0) mmol/L Chloride 101.3 (98-107) mmol/L Carbon Dioxide 25 (22-30) mmol/L BUN 19 H (7-17) mg/dL Creatinine 0.7 (0.7-1.2) mg/dL Glucose 98 (65-100) mg/dL Calcium 9.2 (8.4-10.2) mg/dL AST 23 (5-40) units/L ALT 14 (7-56) units/L Alkaline Phosphatase 101 (35-129) units/L Total Protein 7.2 (6.3-8.2) g/dL Albumin 3.7 L (3.9-5) g/dL - EKG Interpretation EKG: sinus rhythm Assessment and Plan NSTEMI Cath is showing evidence of complete mid RCA occlusion with left to right collaterals Normal LVEF Type II DM Systemic Hypertension Hyperlipidemia Recommendations: Proceed with PCI to mid RCA Routine post SC care
[2016-11-04] MEDS ORDERED: AGGRASTAT DRIP (12.5 MG/250 ML) 12,500 MCG/250 ML BAG IV ONE (14:35)
--- NOTE | 2016-11-04 15:16 | Event Note ---
Date: 11/04/16 Successful PCI of the mid RCA, subtotal occlusion >99% to 0% with restored CARMEN 3 flow. Excellent angiographic result. No complications. Recommend Aggrastat for 48hrs due to extensive intraluminal thrombus. Stop Heparin. Continue Imdur, plavix, ASA, Atorvastatin and metoprolol.
[2016-11-04] MEDS: IMDUR PO SCH (16:21)
--- NOTE | 2016-11-04 20:26 | Cardiac Catherization Report ---
LEFT HEART CATHETERIZATION INDICATION FOR PROCEDURE: Non-ST elevation myocardial infarction. PROCEDURES PERFORMED: 1. Selective left and right coronary angiography. 2. Left ventriculography. DESCRIPTION OF PROCEDURE: After obtaining written consent, the patient was draped using sterile technique. A 2% lidocaine was injected into the right wrist. A 5-[place]gas[place] JL3.5 catheter was used to selectively engage the left coronary artery. A 5-[place]gas[place] JR4 catheter was used to selectively engage the right coronary artery. A 5-[place]gas[place] JR4 catheter was used to perform a left ventriculogram. No complications occurred during the procedure. Hemostasis was achieved at the end of the procedure using manual pressure. ESTIMATED BLOOD LOSS: Minimal. SPECIMEN REMOVED: None. FINDINGS: HEMODYNAMICS: Aortic pressure is 141/87. LV systolic pressure is 145 mmHg. LVEDP was measured at 37 mmHg. There was no significant gradient noted across the left ventricular outflow tract. CARDIAC STRUCTURES: The left ventricle is normal in size and systolic function, and left ventricular ejection fraction is estimated at 60%. CORONARY ANATOMY: 1. This is a right dominant circulation. 2. The left main is angiographically normal. 3. The LAD has less than or equal to 25% luminal irregularities. 4. The left circumflex artery has less than or equal to 25% luminal irregularities. 5. The right coronary artery has evidence of 100% stenosis with extensive clot burden noted in the mid segment. There are excellent collaterals noted from the left circulation supplying the distal right coronary artery. IMPRESSION: Complete occlusion of the mid right coronary artery with extensive clot burden. Left to right collaterals supplying the distal right coronary artery. RECOMMENDATIONS: Proceed with PCI to the mid right coronary artery. JOB# [id number] JENS/TONYA
[2016-11-04] MEDS ORDERED: NON-FORMULARY (Atorvastatin 10 MG) PO SCH (22:00)
[2016-11-05] MEDS: AGGRASTAT DRIP IV SCH ×2 (00:27→15:27)
[2016-11-05] MEDS: DILAUDID IV PRN ×5 (03:35→22:02)
[2016-11-05 04:37] LABS: Basophils % (Auto) 0.5 % (0.0-1.8); Eosinophils % (Auto) 0.8 % (0.0-4.3); Hematocrit 34.4 % (30.3-42.9); Hemoglobin 11.6 gm/dl (10.1-14.3); Mean Corpuscular HGB Conc 34 % (30-34); Mean Corpuscular Hemoglobin 31 pg (28-32); Mean Corpuscular Volume 91 fl (79-97); Platelet Count 243 K/mm3 (140-440); Red Blood Count 3.76 M/mm3 (3.65-5.03); Red Cell Distribution Width 12.8 % (13.2-15.2); White Blood Count 8.7 K/mm3 (4.5-11.0)
[2016-11-05 05:04] LABS: Creatine Kinase MB 5.4 ng/mL (0.0-4.0)
[2016-11-05 05:05] LABS: Blood Urea Nitrogen 12 mg/dL (7-17); Calcium 8.8 mg/dL (8.4-10.2); Carbon Dioxide 24 mmol/L (22-30); Chloride 100.3 mmol/L (98-107); Creatine Kinase 78 units/L (30-135); Glucose 112 mg/dL (65-100); Sodium 137 mmol/L (137-145)
[2016-11-05 05:28] LABS: Anion Gap 17 mmol/L
[2016-11-05] MEDS: NOVOLOG SUB-Q SCH ×4 (09:17→21:56)
--- NOTE | 2016-11-05 09:25 | XRay Report ---
Single view chest: Compared to 11/03/16. History: Post PCI. Findings: Borderline cardiomegaly. Trachea is midline. No consolidation, pneumothorax or pleural effusion. Impression: No acute cardiopulmonary findings.
--- NOTE | 2016-11-05 09:49 | Progress Note ---
Assessment and Plan Assessment and plan: NSTEMI. She was taken to cardiac micro lab analyst yesterday. She had successful PCI of the mid RCA, subtotal occlusion >99% to 0% with restored CARMEN 3 flow. Cartilage recommended Aggrastat for 48 hours due to extensive intraluminal thrombus. Heparin was discontinued. She is now on aspirin Plavix Aggrastat metoprolol and Imdur. No chest pain currently. Hypertension. Continue metoprolol and Imdur Borderline diabetes mellitus type 2. Her A1C = 6.2. Check fingerstick glucose before every meal and at bedtime Hyperlipidemia. Lipitor DVT prophylaxis. Was on Heparin drip, now apprastat Full CODE STATUS History Interval history: Patient with NSTEMI less shortness of breath, less epigastric pain no chest pain had cardiac cath and PCI yesterday Hospitalist Physical - Physical exam Narrative exam: Gen appearance : Not in acute distress,obese HEENT: Normocephalic atraumatic Neck: supple, no JVD. Lungs: Decreased breath sounds bilaterally, Heart: S1 and S2 regular, no murmurs, rubs or gallop Abdomen: soft, non-tender, non-distended, normal bowel sounds Extremities: No edema, no clubbing or cyanosis Neuro : Awake alert oriented 3, no focal signs skin: no rashes Psych: appropriate mood - Constitutional Vitals: Temp Pulse Resp BP Pulse Ox 98.7 F 84 14 121/59 97 11/05/16 08:00 11/05/16 09:30 11/05/16 09:30 11/05/16 09:30 11/05/16 09:48 General appearance: Present: no acute distress Results - Labs CBC & Chem 7: 11/05/16 04:24 11/05/16 04:24 Labs: Laboratory Last Values WBC 8.7 K/mm3 (4.5-11.0) 11/05/16 04:24 RBC 3.76 M/mm3 (3.65-5.03) 11/05/16 04:24 Hgb 11.6 gm/dl (10.1-14.3) 11/05/16 04:24 Hct 34.4 % (30.3-42.9) D 11/05/16 04:24 MCV 91 fl (79-97) 11/05/16 04:24 MCH 31 pg (28-32) 11/05/16 04:24 MCHC 34 % (30-34) 11/05/16 04:24 RDW 12.8 % (13.2-15.2) L 11/05/16 04:24 Plt Count 243 K/mm3 (140-440) 11/05/16 04:24 Lymph % (Auto) 24.5 % (13.4-35.0) 11/05/16 04:24 [place] % (Auto) 8.3 % (0.0-7.3) H 11/05/16 04:24 Eos % (Auto) 0.8 % (0.0-4.3) 11/05/16 04:24 Baso % (Auto) 0.5 % (0.0-1.8) 11/05/16 04:24 Lymph # 2.1 K/mm3 (1.2-5.4) 11/05/16 04:24 [place] # 0.7 K/mm3 (0.0-0.8) 11/05/16 04:24 Eos # 0.1 K/mm3 (0.0-0.4) 11/05/16 04:24 Baso # 0.0 K/mm3 (0.0-0.1) 11/05/16 04:24 Add Manual Diff Complete 11/04/16 04:43 Total Counted 100 11/04/16 04:43 Seg Neutrophils % 65.9 % (40.0-70.0) 11/05/16 04:24 Seg Neuts % (Manual) 37.0 % (40.0-70.0) L 11/04/16 04:43 Band Neutrophils % 6.0 % 11/04/16 04:43 Lymphocytes % (Manual) 45.0 % (13.4-35.0) H 11/04/16 04:43 Reactive Lymphs % (Man) 0 % 11/04/16 04:43 Monocytes % (Manual) 5.0 % (0.0-7.3) 11/04/16 04:43 Eosinophils % (Manual) 5.0 % (0.0-4.3) H 11/04/16 04:43 Basophils % (Manual) 0 % (0.0-1.8) 11/04/16 04:43 Metamyelocytes % 2.0 % 11/04/16 04:43 Myelocytes % 0 % 11/04/16 04:43 Promyelocytes % 0 % 11/04/16 04:43 Blast Cells % 0 % 11/04/16 04:43 Nucleated RBC % Not Reportable 11/04/16 04:43 Seg Neutrophils # 5.8 K/mm3 (1.8-7.7) 11/05/16 04:24 Seg Neutrophils # Man 3.1 K/mm3 (1.8-7.7) 11/04/16 04:43 Band Neutrophils # 0.5 K/mm3 11/04/16 04:43 Lymphocytes # (Manual) 3.8 K/mm3 (1.2-5.4) 11/04/16 04:43 Abs React Lymphs (Man) 0.0 K/mm3 11/04/16 04:43 Monocytes # (Manual) 0.4 K/mm3 (0.0-0.8) 11/04/16 04:43 Eosinophils # (Manual) 0.4 K/mm3 (0.0-0.4) 11/04/16 04:43 Basophils # (Manual) 0.0 K/mm3 (0.0-0.1) 11/04/16 04:43 Metamyelocytes # 0.2 K/mm3 11/04/16 04:43 Myelocytes # 0.0 K/mm3 11/04/16 04:43 Promyelocytes # 0.0 K/mm3 11/04/16 04:43 Blast Cells # 0.0 K/mm3 11/04/16 04:43 WBC Morphology Not Reportable 11/04/16 04:43 Hypersegmented Neuts Not Reportable 11/04/16 04:43 Hyposegmented Neuts Not Reportable 11/04/16 04:43 Hypogranular Neuts Not Reportable 11/04/16 04:43 Smudge Cells Not Reportable 11/04/16 04:43 Toxic Granulation Not Reportable 11/04/16 04:43 Toxic Vacuolation Not Reportable 11/04/16 04:43 Dohle Bodies Not Reportable 11/04/16 04:43 Pelger-Huet Anomaly Not Reportable 11/04/16 04:43 Adiel Rods Not Reportable 11/04/16 04:43 Platelet Estimate Appears normal 11/04/16 04:43 Clumped Platelets Not Reportable 11/04/16 04:43 Plt Clumps, EDTA Not Reportable 11/04/16 04:43 Large Platelets Few 11/04/16 04:43 Giant Platelets Not Reportable 11/04/16 04:43 Platelet Satelliting Not Reportable 11/04/16 04:43 Plt Morphology Comment Not Reportable 11/04/16 04:43 RBC Morphology Not Reportable 11/04/16 04:43 Dimorphic RBCs Not Reportable 11/04/16 04:43 Polychromasia Not Reportable 11/04/16 04:43 Hypochromasia Not Reportable 11/04/16 04:43 Poikilocytosis Not Reportable 11/04/16 04:43 Anisocytosis 1+ 11/04/16 04:43 Microcytosis Not Reportable 11/04/16 04:43 Macrocytosis Not Reportable 11/04/16 04:43 Spherocytes Not Reportable 11/04/16 04:43 Pappenheimer Bodies Not Reportable 11/04/16 04:43 Sickle Cells Not Reportable 11/04/16 04:43 Target Cells Not Reportable 11/04/16 04:43 Tear Drop Cells Not Reportable 11/04/16 04:43 Ovalocytes Not Reportable 11/04/16 04:43 Helmet Cells Not Reportable 11/04/16 04:43 [place] Bodies Not Reportable 11/04/16 04:43 [place] Rings Not Reportable 11/04/16 04:43 [place] Cells Not Reportable 11/04/16 04:43 Bite Cells Not Reportable 11/04/16 04:43 Crenated Cell Not Reportable 11/04/16 04:43 Elliptocytes Not Reportable 11/04/16 04:43 Acanthocytes (Spur) Not Reportable 11/04/16 04:43 Rouleaux Not Reportable 11/04/16 04:43 Hemoglobin C Crystals Not Reportable 11/04/16 04:43 Schistocytes Not Reportable 11/04/16 04:43 Malaria parasites Not Reportable 11/04/16 04:43 James Bodies Not Reportable 11/04/16 04:43 Hem Pathologist Commnt No 11/04/16 04:43 PT 13.0 Sec. (12.2-14.9) 11/03/16 19:14 INR 0.99 (0.87-1.13) 11/03/16 19:14 APTT 51.1 Sec. (24.2-36.6) H 11/03/16 19:14 D-Dimer 135.00 ng/mlDDU (0-234) 11/03/16 17:09 Heparin Anti-Xa Level 0.58 U.I./ml (0.3-0.7) 11/04/16 04:43 Sodium 137 mmol/L (137-145) 11/05/16 04:24 Potassium 4.0 mmol/L (3.6-5.0) 11/05/16 04:24 Chloride 100.3 mmol/L (98-107) 11/05/16 04:24 Carbon Dioxide 24 mmol/L (22-30) 11/05/16 04:24 Anion Gap 17 mmol/L 11/05/16 04:24 BUN 12 mg/dL (7-17) 11/05/16 04:24 Creatinine 0.6 mg/dL (0.7-1.2) L 11/05/16 04:24 Estimated GFR > 60 ml/min 11/05/16 04:24 BUN/Creatinine Ratio 20.00 % 11/05/16 04:24 Glucose 112 mg/dL (65-100) H 11/05/16 04:24 POC Glucose 139 (70-105) H 11/04/16 21:57 Hemoglobin A1c 6.2 % (4-6) H 11/04/16 04:43 Calcium 8.8 mg/dL (8.4-10.2) 11/05/16 04:24 Total Bilirubin 0.2 mg/dL (0.1-1.2) 11/04/16 04:43 AST 23 units/L (5-40) 11/04/16 04:43 ALT 14 units/L (7-56) 11/04/16 04:43 Alkaline Phosphatase 101 units/L (35-129) 11/04/16 04:43 Total Creatine Kinase 78 units/L (30-135) 11/05/16 04:24 CK-MB (CK-2) 5.4 ng/mL (0.0-4.0) H 11/05/16 04:24 CK-MB (CK-2) Rel Index 6.9 (0-4) H 11/05/16 04:24 Troponin T 0.255 ng/mL (0.00-0.029) H* D 11/05/16 04:24 Total Protein 7.2 g/dL (6.3-8.2) 11/04/16 04:43 Albumin 3.7 g/dL (3.9-5) L 11/04/16 04:43 Albumin/Globulin Ratio 1.1 % 11/04/16 04:43 Triglycerides 232 mg/dL (2-149) H 11/03/16 17:09 Cholesterol 246 mg/dL (50-199) H 11/03/16 17:09 LDL Cholesterol Direct 146 mg/dL (50-130) H 11/03/16 17:09 HDL Cholesterol 54 mg/dL (40-59) 11/03/16 17:09 Cholesterol/HDL Ratio 4.55 % 11/03/16 17:09
[2016-11-05] MEDS: LOPRESSOR PO SCH ×3 (10:10→22:02)
[2016-11-05] MEDS: IMDUR PO SCH (10:11)
[2016-11-05] MEDS: PLAVIX PO SCH (10:12)
[2016-11-05] MEDS: NORVASC PO SCH (10:14)
[2016-11-05] MEDS: ECOTRIN PO SCH (10:15)
--- NOTE | 2016-11-05 13:18 | Progress Note ---
Assessment and Plan NSTEMI s/p PCI of the RCA Cath is showing evidence of complete mid RCA occlusion with left to right collaterals s/p PCI of the RCA with heavy thrombus burden Normal LVEF Type II DM Systemic Hypertension Hyperlipidemia Recommendations: Continue maximal medical therapy with BB, statine and DAPT Aggranox for 48 hours total due to large thrombus burden. Subjective Date of service: 11/05/16 Interval history: No acute events. REsting comfortably. No chest pain or sOB. Objective Vital Signs Temp Pulse Pulse Resp BP Pulse Ox 11/05/16 10:14 87 132/70 11/05/16 10:13 82 132/70 11/05/16 10:11 92 H 132/70 11/05/16 10:10 92 H 132/70 11/05/16 09:51 82 18 126/62 97 11/05/16 09:48 97 11/05/16 09:41 81 17 121/59 96 11/05/16 09:30 84 14 121/59 96 11/05/16 09:21 86 17 129/65 97 11/05/16 09:11 79 18 136/63 96 11/05/16 09:00 71 22 136/63 96 11/05/16 08:51 72 23 136/64 96 11/05/16 08:41 77 15 125/57 98 11/05/16 08:36 18 11/05/16 08:30 89 20 125/57 99 11/05/16 08:21 81 18 111/56 97 11/05/16 08:11 82 20 120/59 95 11/05/16 08:06 18 11/05/16 08:00 98.7 F 70 72 12 120/59 100 11/05/16 07:51 71 16 101/65 99 11/05/16 07:41 79 18 112/64 98 11/05/16 07:31 72 21 112/64 97 11/05/16 07:21 73 12 100/70 99 11/05/16 07:11 73 21 107/65 97 11/05/16 07:00 69 20 107/65 98 11/05/16 06:51 75 16 104/62 99 11/05/16 06:41 67 19 106/56 98 11/05/16 06:30 76 15 106/56 98 11/05/16 06:21 72 19 103/59 98 11/05/16 06:11 70 16 112/58 99 11/05/16 06:00 80 18 112/58 98 11/05/16 05:51 75 14 101/46 98 11/05/16 05:40 83 18 107/61 97 11/05/16 05:30 82 14 107/61 96 11/05/16 05:21 81 16 117/65 97 11/05/16 05:11 77 16 109/61 98 11/05/16 05:00 76 14 109/61 95 11/05/16 04:51 80 15 113/62 95 11/05/16 04:41 80 16 115/63 95 11/05/16 04:30 73 18 115/63 96 11/05/16 04:21 76 17 106/59 96 11/05/16 04:11 81 14 106/57 96 11/05/16 04:00 98.8 F 76 16 106/57 95 11/05/16 03:51 78 13 104/58 95 11/05/16 03:41 73 18 120/67 96 11/05/16 03:30 81 25 H 120/67 97 11/05/16 03:21 68 17 112/67 98 11/05/16 03:11 70 23 112/67 99 11/05/16 03:00 73 20 112/67 96 11/05/16 02:51 81 21 115/65 98 11/05/16 02:41 86 17 118/65 97 11/05/16 02:30 71 24 118/65 98 11/05/16 02:21 66 25 H 110/58 99 11/05/16 02:11 66 12 120/60 98 11/05/16 02:00 76 13 120/60 99 11/05/16 01:51 66 20 119/74 98 11/05/16 01:41 76 19 100/61 97 11/05/16 01:30 75 17 100/61 98 11/05/16 01:26 96 11/05/16 01:21 71 24 106/57 97 11/05/16 01:11 72 17 107/62 96 11/05/16 01:00 73 20 107/62 97 11/05/16 00:51 79 13 109/62 95 11/05/16 00:41 69 17 109/56 95 11/05/16 00:30 67 22 109/56 97 11/05/16 00:21 66 22 104/58 98 11/05/16 00:11 68 16 105/55 97 11/05/16 00:03 70 19 105/55 96 11/05/16 00:00 97.4 F L 77 20 105/55 96 11/04/16 23:51 75 17 95/44 98 11/04/16 23:41 73 17 111/59 96 11/04/16 23:30 77 16 111/59 93 11/04/16 23:21 77 16 103/55 94 11/04/16 23:11 77 17 112/59 94 11/04/16 23:00 73 17 112/59 95 11/04/16 22:51 80 16 101/59 94 11/04/16 22:41 78 18 97/59 95 11/04/16 22:30 79 17 97/59 94 11/04/16 22:21 74 18 95/54 94 11/04/16 22:11 85 12 108/56 96 11/04/16 22:01 60 100/54 11/04/16 22:00 79 19 108/56 92 11/04/16 21:51 80 16 100/56 94 11/04/16 21:41 83 16 100/55 93 11/04/16 21:30 75 22 100/55 94 11/04/16 21:21 71 21 113/60 98 11/04/16 21:11 83 18 120/64 98 11/04/16 21:00 73 15 120/64 98 11/04/16 20:51 81 17 96/53 97 11/04/16 20:41 83 16 97/49 95 11/04/16 20:30 89 17 97/49 95 11/04/16 20:21 76 17 122/64 96 11/04/16 20:11 76 16 123/66 96 11/04/16 20:00 98.3 F 74 17 123/66 97 03 19:51 81 16 117/65 96 03 19:41 79 17 116/64 96 03 19:30 73 20 116/64 95 03 19:21 77 19 114/62 96 11/04/16 19:11 70 19 119/68 95 03 19:00 71 20 119/68 95 11/04/16 18:51 76 22 122/70 96 11/04/16 18:41 70 19 117/69 98 11/04/16 18:30 70 19 117/69 97 11/04/16 18:21 72 20 122/68 95 11/04/16 18:11 73 19 127/72 96 11/04/16 18:00 73 75 H 112/70 95 11/04/16 17:51 69 19 131/74 98 11/04/16 17:41 70 18 143/77 97 11/04/16 17:30 74 15 131/75 94 11/04/16 17:21 77 16 137/77 94 11/04/16 17:11 75 20 143/77 95 11/04/16 17:00 76 18 137/77 92 11/04/16 16:51 78 16 134/75 93 11/04/16 16:41 73 14 147/80 96 11/04/16 16:30 78 16 134/75 95 11/04/16 16:21 84 19 147/79 97 11/04/16 16:15 72 17 147/79 97 11/04/16 16:11 70 17 151/83 98 11/04/16 16:00 98.3 F 72 72 17 151/83 97 11/04/16 15:51 68 21 146/80 97 11/04/16 15:45 98.3 F 68 17 140/80 97 11/04/16 15:41 73 14 143/74 97 11/04/16 15:30 72 143/74 11/04/16 13:30 71 18 134/74 98 - Physical Examination HEENT: Positive: PERRL Neck: Positive: neck supple Neuro: Positive: Grossly Intact Abdomen: Positive: Soft Extremities: Present: normal - Labs and Meds Cardiac Enzymes 11/05/16 Range/Units 04:24 CK-MB (CK-2) 5.4 H (0.0-4.0) ng/mL CBC 11/05/16 Range/Units 04:24 WBC 8.7 (4.5-11.0) K/mm3 RBC 3.76 (3.65-5.03) M/mm3 Hgb 11.6 (10.1-14.3) gm/dl Hct 34.4 D (30.3-42.9) % Plt Count 243 (140-440) K/mm3 Lymph # 2.1 (1.2-5.4) K/mm3 [place] # 0.7 (0.0-0.8) K/mm3 Eos # 0.1 (0.0-0.4) K/mm3 Baso # 0.0 (0.0-0.1) K/mm3 Comprehensive Metabolic Panel 11/05/16 Range/Units 04:24 Sodium 137 (137-145) mmol/L Potassium 4.0 (3.6-5.0) mmol/L Chloride 100.3 (98-107) mmol/L Carbon Dioxide 24 (22-30) mmol/L BUN 12 (7-17) mg/dL Creatinine 0.6 L (0.7-1.2) mg/dL Glucose 112 H (65-100) mg/dL Calcium 8.8 (8.4-10.2) mg/dL
[2016-11-05 13:27] LABS: Urine Drugs of Abuse Note Disclamer
--- NOTE | 2016-11-06 00:14 | Progress Note ---
Assessment and Plan NSTEMI s/p PCI of the RCA Cath is showing evidence of complete mid RCA occlusion with left to right collaterals s/p PCI of the RCA with heavy thrombus burden Normal LVEF Type II DM Systemic Hypertension Hyperlipidemia Recommendations: Continue maximal medical therapy with BB, statin and DAPT Aggranox for 48 hours total due to large thrombus burden. Transfer to floor when aggranox discontinued. Possible D/C home tomorrow Subjective Date of service: 11/06/16 Interval history: No acute events. REsting comfortably. No chest pain or sOB. Objective Vital Signs Temp Pulse Pulse Pulse Resp BP Pulse Ox 11/05/16 23:26 98.0 F 11/05/16 22:02 80 19 128/67 11/05/16 20:35 95 11/05/16 20:00 98.8 F 11/05/16 18:41 74 15 125/67 98 11/05/16 18:31 73 22 125/67 96 11/05/16 18:21 79 14 120/66 98 11/05/16 18:11 77 22 127/64 96 11/05/16 18:00 72 28 H 127/64 97 11/05/16 17:51 75 25 H 129/74 99 11/05/16 17:41 72 26 H 130/69 98 11/05/16 17:30 75 25 H 130/69 97 11/05/16 17:21 80 21 120/63 98 11/05/16 17:11 73 22 112/64 97 11/05/16 17:00 74 19 112/64 96 11/05/16 16:51 78 20 103/60 96 11/05/16 16:41 76 19 122/63 97 11/05/16 16:30 71 19 122/63 97 11/05/16 16:21 73 19 117/62 97 11/05/16 16:11 69 19 112/63 97 11/05/16 16:00 98.3 F 66 68 16 112/63 95 11/05/16 15:51 69 19 107/56 97 11/05/16 15:41 71 26 H 100/51 97 11/05/16 15:30 74 21 100/51 95 11/05/16 15:21 79 17 109/55 98 11/05/16 15:11 71 21 95/52 96 11/05/16 15:00 76 23 95/52 94 11/05/16 14:51 77 19 106/52 96 11/05/16 14:41 77 22 118/65 96 11/05/16 14:30 73 21 114/61 94 11/05/16 14:20 71 21 118/65 96 11/05/16 14:11 73 18 118/65 96 11/05/16 14:00 69 17 113/63 93 11/05/16 13:51 65 21 118/65 94 11/05/16 13:41 65 20 120/64 96 11/05/16 13:30 64 22 120/64 93 11/05/16 13:21 63 31 H 120/61 98 11/05/16 13:11 65 26 H 142/78 98 11/05/16 13:00 65 17 142/78 97 11/05/16 12:51 61 16 125/72 99 11/05/16 12:41 61 21 149/59 97 11/05/16 12:30 63 12 149/59 95 11/05/16 12:21 79 21 140/56 98 11/05/16 12:11 74 20 125/64 99 11/05/16 12:00 98.3 F 66 77 18 125/64 98 11/05/16 11:51 70 17 135/66 99 11/05/16 11:41 69 29 H 140/82 99 11/05/16 11:30 85 17 140/82 98 11/05/16 11:21 76 19 134/70 98 11/05/16 11:11 80 19 141/55 98 11/05/16 11:00 84 18 141/55 99 11/05/16 10:51 78 25 H 128/68 100 11/05/16 10:41 89 20 140/68 99 11/05/16 10:31 82 14 60/26 99 11/05/16 10:21 80 23 132/58 98 11/05/16 10:14 87 132/70 11/05/16 10:13 82 132/70 11/05/16 10:11 89 16 132/70 100 11/05/16 10:10 92 H 132/70 11/05/16 10:00 81 18 132/70 97 11/05/16 09:51 82 18 126/62 97 11/05/16 09:48 97 11/05/16 09:41 81 17 121/59 96 02/04/17 09:30 84 14 121/59 96 11/05/16 09:21 86 17 129/65 97 11/05/16 09:11 79 18 136/63 96 11/05/16 09:00 71 22 136/63 96 11/05/16 08:51 72 23 136/64 96 11/05/16 08:41 77 15 125/57 98 11/05/16 08:36 18 11/05/16 08:30 89 20 125/57 99 11/05/16 08:21 81 18 111/56 97 11/05/16 08:11 82 20 120/59 95 11/05/16 08:06 18 11/05/16 08:00 98.7 F 70 72 12 120/59 100 11/05/16 07:51 71 16 101/65 99 11/05/16 07:41 79 18 112/64 98 11/05/16 07:31 72 21 112/64 97 11/05/16 07:21 73 12 100/70 99 11/05/16 07:11 73 21 107/65 97 11/05/16 07:00 69 20 107/65 98 11/05/16 06:51 75 16 104/62 99 11/05/16 06:41 67 19 106/56 98 11/05/16 06:30 76 15 106/56 98 11/05/16 06:21 72 19 103/59 98 11/05/16 06:11 70 16 112/58 99 11/05/16 06:00 80 18 112/58 98 11/05/16 05:51 75 14 101/46 98 11/05/16 05:40 83 18 107/61 97 11/05/16 05:30 82 14 107/61 96 11/05/16 05:21 81 16 117/65 97 11/05/16 05:11 77 16 109/61 98 11/05/16 05:00 76 14 109/61 95 11/05/16 04:51 80 15 113/62 95 11/05/16 04:41 80 16 115/63 95 11/05/16 04:30 73 18 115/63 96 11/05/16 04:21 76 17 106/59 96 11/05/16 04:11 81 14 106/57 96 11/05/16 04:00 98.8 F 76 16 106/57 95 11/05/16 03:51 78 13 104/58 95 11/05/16 03:41 73 18 120/67 96 11/05/16 03:30 81 25 H 120/67 97 11/05/16 03:21 68 17 112/67 98 11/05/16 03:11 70 23 112/67 99 11/05/16 03:00 73 20 112/67 96 11/05/16 02:51 81 21 115/65 98 11/05/16 02:41 86 17 118/65 97 11/05/16 02:30 71 24 118/65 98 11/05/16 02:21 66 25 H 110/58 99 11/05/16 02:11 66 12 120/60 98 11/05/16 02:00 76 13 120/60 99 11/05/16 01:51 66 20 119/74 98 11/05/16 01:41 76 19 100/61 97 11/05/16 01:30 75 17 100/61 98 11/05/16 01:26 96 11/05/16 01:21 71 24 106/57 97 11/05/16 01:11 72 17 107/62 96 11/05/16 01:00 73 20 107/62 97 11/05/16 00:51 79 13 109/62 95 11/05/16 00:41 69 17 109/56 95 11/05/16 00:30 67 22 109/56 97 11/05/16 00:21 66 22 104/58 98 - Physical Examination HEENT: Positive: PERRL Neck: Positive: neck supple Neuro: Positive: Grossly Intact Abdomen: Positive: Soft Extremities: Present: normal - Labs and Meds Cardiac Enzymes 11/05/16 Range/Units 04:24 CK-MB (CK-2) 5.4 H (0.0-4.0) ng/mL CBC 11/05/16 Range/Units 04:24 WBC 8.7 (4.5-11.0) K/mm3 RBC 3.76 (3.65-5.03) M/mm3 Hgb 11.6 (10.1-14.3) gm/dl Hct 34.4 D (30.3-42.9) % Plt Count 243 (140-440) K/mm3 Lymph # 2.1 (1.2-5.4) K/mm3 [place] # 0.7 (0.0-0.8) K/mm3 Eos # 0.1 (0.0-0.4) K/mm3 Baso # 0.0 (0.0-0.1) K/mm3 Comprehensive Metabolic Panel 11/05/16 Range/Units 04:24 Sodium 137 (137-145) mmol/L Potassium 4.0 (3.6-5.0) mmol/L Chloride 100.3 (98-107) mmol/L Carbon Dioxide 24 (22-30) mmol/L BUN 12 (7-17) mg/dL Creatinine 0.6 L (0.7-1.2) mg/dL Glucose 112 H (65-100) mg/dL Calcium 8.8 (8.4-10.2) mg/dL
[2016-11-06] MEDS: DILAUDID IV PRN ×5 (01:08→20:47)
[2016-11-06] MEDS: AGGRASTAT DRIP IV SCH (04:52)
--- NOTE | 2016-11-06 09:16 | Progress Note ---
Assessment and Plan Assessment and plan: NSTEMI. 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 She had successful PCI of the mid RCA, subtotal occlusion >99% to 0% with restored CARMEN 3 flow. Cardiology recommended Aggrastat for 48 hours due to extensive intraluminal thrombus. This should be completed today. She is now on aspirin Plavix Aggrastat metoprolol and Imdur. No chest pain currently. Hypertension. Continue metoprolol and Imdur Borderline diabetes mellitus type 2. Her A1C = 6.2. Check fingerstick glucose before every meal and at bedtime Hyperlipidemia. Lipitor DVT prophylaxis. Was on Heparin drip, now aggrastat Full CODE STATUS Transfer to Tele after Aggrastat completed History Interval history: Patient with NSTEMI less shortness of breath, less epigastric pain no chest pain still on Aggrastat Hospitalist Physical - Physical exam Narrative exam: Gen appearance : Not in acute distress,obese HEENT: Normocephalic atraumatic Neck: supple, no JVD. Lungs: Decreased breath sounds bilaterally, Heart: S1 and S2 regular, no murmurs, rubs or gallop Abdomen: soft, non-tender, non-distended, normal bowel sounds Extremities: No edema, no clubbing or cyanosis Neuro : Awake alert oriented 3, no focal signs Skin: no rashes Psych: appropriate mood - Constitutional Vitals: Temp Pulse Resp BP Pulse Ox 98.1 F 81 20 143/71 98 11/06/16 03:37 11/06/16 08:41 11/06/16 08:41 11/06/16 08:41 11/06/16 08:41 General appearance: Present: no acute distress Results - Labs CBC & Chem 7: 11/06/16 10:20 11/06/16 10:20 Labs: Laboratory Last Values WBC 8.7 K/mm3 (4.5-11.0) 11/05/16 04:24 RBC 3.76 M/mm3 (3.65-5.03) 11/05/16 04:24 Hgb 11.6 gm/dl (10.1-14.3) 11/05/16 04:24 Hct 34.4 % (30.3-42.9) D 11/05/16 04:24 MCV 91 fl (79-97) 11/05/16 04:24 MCH 31 pg (28-32) 11/05/16 04:24 MCHC 34 % (30-34) 11/05/16 04:24 RDW 12.8 % (13.2-15.2) L 11/05/16 04:24 Plt Count 243 K/mm3 (140-440) 11/05/16 04:24 Lymph % (Auto) 24.5 % (13.4-35.0) 11/05/16 04:24 Kinney % (Auto) 8.3 % (0.0-7.3) H 11/05/16 04:24 Eos % (Auto) 0.8 % (0.0-4.3) 11/05/16 04:24 Baso % (Auto) 0.5 % (0.0-1.8) 11/05/16 04:24 Lymph # 2.1 K/mm3 (1.2-5.4) 11/05/16 04:24 Kinney # 0.7 K/mm3 (0.0-0.8) 11/05/16 04:24 Eos # 0.1 K/mm3 (0.0-0.4) 11/05/16 04:24 Baso # 0.0 K/mm3 (0.0-0.1) 11/05/16 04:24 Add Manual Diff Complete 11/04/16 04:43 Total Counted 100 11/04/16 04:43 Seg Neutrophils % 65.9 % (40.0-70.0) 11/05/16 04:24 Seg Neuts % (Manual) 37.0 % (40.0-70.0) L 11/04/16 04:43 Band Neutrophils % 6.0 % 11/04/16 04:43 Lymphocytes % (Manual) 45.0 % (13.4-35.0) H 11/04/16 04:43 Reactive Lymphs % (Man) 0 % 11/04/16 04:43 Monocytes % (Manual) 5.0 % (0.0-7.3) 11/04/16 04:43 Eosinophils % (Manual) 5.0 % (0.0-4.3) H 11/04/16 04:43 Basophils % (Manual) 0 % (0.0-1.8) 11/04/16 04:43 Metamyelocytes % 2.0 % 11/04/16 04:43 Myelocytes % 0 % 11/04/16 04:43 Promyelocytes % 0 % 11/04/16 04:43 Blast Cells % 0 % 11/04/16 04:43 Nucleated RBC % Not Reportable 11/04/16 04:43 Seg Neutrophils # 5.8 K/mm3 (1.8-7.7) 11/05/16 04:24 Seg Neutrophils # Man 3.1 K/mm3 (1.8-7.7) 11/04/16 04:43 Band Neutrophils # 0.5 K/mm3 11/04/16 04:43 Lymphocytes # (Manual) 3.8 K/mm3 (1.2-5.4) 11/04/16 04:43 Abs React Lymphs (Man) 0.0 K/mm3 11/04/16 04:43 Monocytes # (Manual) 0.4 K/mm3 (0.0-0.8) 11/04/16 04:43 Eosinophils # (Manual) 0.4 K/mm3 (0.0-0.4) 11/04/16 04:43 Basophils # (Manual) 0.0 K/mm3 (0.0-0.1) 11/04/16 04:43 Metamyelocytes # 0.2 K/mm3 11/04/16 04:43 Myelocytes # 0.0 K/mm3 11/04/16 04:43 Promyelocytes # 0.0 K/mm3 11/04/16 04:43 Blast Cells # 0.0 K/mm3 11/04/16 04:43 WBC Morphology Not Reportable 11/04/16 04:43 Hypersegmented Neuts Not Reportable 11/04/16 04:43 Hyposegmented Neuts Not Reportable 11/04/16 04:43 Hypogranular Neuts Not Reportable 11/04/16 04:43 Smudge Cells Not Reportable 11/04/16 04:43 Toxic Granulation Not Reportable 11/04/16 04:43 Toxic Vacuolation Not Reportable 11/04/16 04:43 Dohle Bodies Not Reportable 11/04/16 04:43 Pelger-Huet Anomaly Not Reportable 11/04/16 04:43 Adiel Rods Not Reportable 11/04/16 04:43 Platelet Estimate Appears normal 11/04/16 04:43 Clumped Platelets Not Reportable 11/04/16 04:43 Plt Clumps, EDTA Not Reportable 11/04/16 04:43 Large Platelets Few 11/04/16 04:43 Giant Platelets Not Reportable 11/04/16 04:43 Platelet Satelliting Not Reportable 11/04/16 04:43 Plt Morphology Comment Not Reportable 11/04/16 04:43 RBC Morphology Not Reportable 11/04/16 04:43 Dimorphic RBCs Not Reportable 11/04/16 04:43 Polychromasia Not Reportable 11/04/16 04:43 Hypochromasia Not Reportable 11/04/16 04:43 Poikilocytosis Not Reportable 11/04/16 04:43 Anisocytosis 1+ 11/04/16 04:43 Microcytosis Not Reportable 11/04/16 04:43 Macrocytosis Not Reportable 11/04/16 04:43 Spherocytes Not Reportable 11/04/16 04:43 Pappenheimer Bodies Not Reportable 11/04/16 04:43 Sickle Cells Not Reportable 11/04/16 04:43 Target Cells Not Reportable 11/04/16 04:43 Tear Drop Cells Not Reportable 11/04/16 04:43 Ovalocytes Not Reportable 11/04/16 04:43 Helmet Cells Not Reportable 11/04/16 04:43 Mckinnon-[place] Bodies Not Reportable 11/04/16 04:43 Ruston Rings Not Reportable 11/04/16 04:43 [place] Cells Not Reportable 11/04/16 04:43 Bite Cells Not Reportable 11/04/16 04:43 Crenated Cell Not Reportable 11/04/16 04:43 Elliptocytes Not Reportable 11/04/16 04:43 Acanthocytes (Spur) Not Reportable 11/04/16 04:43 Rouleaux Not Reportable 11/04/16 04:43 Hemoglobin C Crystals Not Reportable 11/04/16 04:43 Schistocytes Not Reportable 11/04/16 04:43 Malaria parasites Not Reportable 11/04/16 04:43 James Bodies Not Reportable 11/04/16 04:43 Hem Pathologist Commnt No 11/04/16 04:43 PT 13.0 Sec. (12.2-14.9) 11/03/16 19:14 INR 0.99 (0.87-1.13) 11/03/16 19:14 APTT 51.1 Sec. (24.2-36.6) H 11/03/16 19:14 D-Dimer 135.00 ng/mlDDU (0-234) 11/03/16 17:09 Heparin Anti-Xa Level 0.58 U.I./ml (0.3-0.7) 11/04/16 04:43 Sodium 137 mmol/L (137-145) 11/05/16 04:24 Potassium 4.0 mmol/L (3.6-5.0) 11/05/16 04:24 Chloride 100.3 mmol/L (98-107) 11/05/16 04:24 Carbon Dioxide 24 mmol/L (22-30) 11/05/16 04:24 Anion Gap 17 mmol/L 11/05/16 04:24 BUN 12 mg/dL (7-17) 11/05/16 04:24 Creatinine 0.6 mg/dL (0.7-1.2) L 11/05/16 04:24 Estimated GFR > 60 ml/min 11/05/16 04:24 BUN/Creatinine Ratio 20.00 % 11/05/16 04:24 Glucose 112 mg/dL (65-100) H 11/05/16 04:24 POC Glucose 128 (70-105) H 11/05/16 21:11 Hemoglobin A1c 6.2 % (4-6) H 11/04/16 04:43 Calcium 8.8 mg/dL (8.4-10.2) 11/05/16 04:24 Total Bilirubin 0.2 mg/dL (0.1-1.2) 11/04/16 04:43 AST 23 units/L (5-40) 11/04/16 04:43 ALT 14 units/L (7-56) 11/04/16 04:43 Alkaline Phosphatase 101 units/L (35-129) 11/04/16 04:43 Total Creatine Kinase 78 units/L (30-135) 11/05/16 04:24 CK-MB (CK-2) 5.4 ng/mL (0.0-4.0) H 11/05/16 04:24 CK-MB (CK-2) Rel Index 6.9 (0-4) H 11/05/16 04:24 Troponin T 0.255 ng/mL (0.00-0.029) H* D 11/05/16 04:24 Total Protein 7.2 g/dL (6.3-8.2) 11/04/16 04:43 Albumin 3.7 g/dL (3.9-5) L 11/04/16 04:43 Albumin/Globulin Ratio 1.1 % 11/04/16 04:43 Triglycerides 232 mg/dL (2-149) H 11/03/16 17:09 Cholesterol 246 mg/dL (50-199) H 11/03/16 17:09 LDL Cholesterol Direct 146 mg/dL (50-130) H 11/03/16 17:09 HDL Cholesterol 54 mg/dL (40-59) 11/03/16 17:09 Cholesterol/HDL Ratio 4.55 % 11/03/16 17:09 Urine Opiates Screen Presumptive negative 11/05/16 13:25 Urine Methadone Screen Presumptive negative 11/05/16 13:25 Ur Barbiturates Screen Presumptive negative 11/05/16 13:25 Ur Phencyclidine Scrn Presumptive negative 11/05/16 13:25 Ur Amphetamines Screen Presumptive negative 11/05/16 13:25 U Benzodiazepines Scrn Presumptive positive 11/05/16 13:25 Urine Cocaine Screen Presumptive negative 11/05/16 13:25 U Marijuana (THC) Screen Presumptive negative 11/05/16 13:25 Drugs of Abuse Note Disclamer 11/05/16 13:25
[2016-11-06] MEDS: NORVASC PO SCH (09:17)
[2016-11-06] MEDS: IMDUR PO SCH (09:18)
[2016-11-06] MEDS: PLAVIX PO SCH (09:18)
[2016-11-06] MEDS: ECOTRIN PO SCH (09:18)
[2016-11-06] MEDS: LOPRESSOR PO SCH ×2 (09:19→21:02)
[2016-11-06] MEDS: NOVOLOG SUB-Q SCH ×2 (09:21→11:53)
[2016-11-06 10:47] LABS: Hematocrit 33.4 % (30.3-42.9); Hemoglobin 11.2 gm/dl (10.1-14.3); Mean Corpuscular HGB Conc 34 % (30-34); Mean Corpuscular Hemoglobin 31 pg (28-32); Mean Corpuscular Volume 92 fl (79-97); Platelet Count 256 K/mm3 (140-440); Red Blood Count 3.65 M/mm3 (3.65-5.03); Red Cell Distribution Width 13.1 % (13.2-15.2); White Blood Count 8.2 K/mm3 (4.5-11.0)
[2016-11-06 11:07] LABS: Anion Gap 15 mmol/L; Blood Urea Nitrogen 9 mg/dL (7-17); Carbon Dioxide 28 mmol/L (22-30); Chloride 103.9 mmol/L (98-107); Glucose 144 mg/dL (65-100); Potassium 3.9 mmol/L (3.6-5.0); Sodium 143 mmol/L (137-145)
--- NOTE | 2016-11-06 17:42 | Cardiac Catherization Report ---
CORONARY ANGIOPLASTY REPORT REASON FOR PROCEDURE: The patient is a 51-year-old woman who presented with acute coronary syndrome. A cardiac catheterization earlier today revealed near total occlusion of the mid right coronary artery. Distal vessel was filled faintly on antegrade manner, but predominantly by left to right collaterals. Coronary angioplasty was recommended. PROCEDURE: The patient was prepped and draped in a sterile fashion after informed consent. The right femoral artery was entered using the Seldinger technique followed by placement of a 6-Panamanian sheath. After initial difficulty with using #1 right Amplatz catheter, we exchanged for #4 right Kimo catheter and advanced to the right coronary ostium. Preintervention angiograms were taken. A 0.014 inch Route Clerk 50 guidewire was introduced into the vessel, successfully across the stenosis of the mid segment. Following wire placement in distal vessel, a 3.5 mm balloon catheter was used to predilate the stenosis. After predilatation, there was reestablishment of CARMEN 3 flow into the distal vessel. We then deployed a 3.5 x 28 mm drug-eluting stent, covering the entire lesion of the mid segment. After stenting, there was an excellent angiographic result at the treated site, 0 residual stenosis. Further angiograms following withdrawal of the wire revealed a secondary, 95%-99% stenosis of the distal AV groove vessel, beyond the posterior descending branch, leading to a medium-sized terminal posterolateral. The wire was then reinserted, crossing this distal lesion. A 2.5 mm balloon catheter was used to dilate this lesion, restoring flow distally. After balloon angioplasty of the second lesion, there was an excellent angiographic result, less than 10% residual stenosis. No additional stents were deployed to this distal stenosis. At the conclusion of the procedure, the patient was chest pain free, hemodynamically stable, the catheters and the wires were removed, sheath removed, hemostasis achieved using an Angio-Seal device, the patient was returned to the postprocedure unit in stable condition. There were no complications. CONCLUSION: 1. Successful angioplasty and stenting of the mid right coronary artery. A 99%-100% occlusion was treated, with a 3.5 mm drug-eluting stent, excellent angiographic result, 0% residual. 2. A secondary, distal 99% stenosis was also treated, with balloon angioplasty alone, excellent angiographic result and less than 10% residual stenosis. JOB# [id number] JOSE/TONYA
[2016-11-06] MEDS ORDERED: ZOFRAN IV PRN (18:08)
[2016-11-06] MEDS ORDERED: AGGRASTAT DRIP IV SCH (19:00)
[2016-11-06] MEDS ORDERED: BENADRYL IV PRN (21:27)
[2016-11-07 04:28] LABS: Hematocrit 32.9 % (30.3-42.9); Hemoglobin 11.1 gm/dl (10.1-14.3)
[2016-11-07] MEDS: NOVOLOG SUB-Q SCH ×3 (05:55→12:33)
[2016-11-07] MEDS ORDERED: MIRALAX 3350 PO PRN (09:43)
--- NOTE | 2016-11-07 09:43 | Discharge Summary ---
Providers - Providers Date of Admission: 11/03/16 23:19 Date of discharge: 11/07/16 Attending physician: STEFANI EASLEY 11/03/16 Consult to Cardiac Rehabilitation [CONS] Routine Reason For Exam: Phase I 11/04/16 Consult to Cardiac Rehabilitation [CONS] Routine Reason For Exam: post pci Primary care physician: INSURANCE SALES PRODUCER Hospitalization Condition: Good Disposition: DISCHARGED TO HOME OR SELFCARE - Discharge Diagnoses (1) NSTEMI (non-ST elevated myocardial infarction) Status: Acute Core Measure Documentation - Palliative Care Palliative Care/ Comfort Measures: Not Applicable - Core Measures Any of the following diagnoses?: acute MD - Acute MD Discharge Requirements Aspirin at discharge: Yes PEDRO/ARB for LVSD if EF <40%: Not Applicable Beta qamar at discharge: Yes Statin for LDL = or >100 mg/dl on DC: Yes Exam - Constitutional Vitals: Temp Pulse Resp BP Pulse Ox 98.5 F 73 17 127/76 89 11/07/16 08:00 11/07/16 08:20 11/07/16 08:20 11/07/16 08:20 11/07/16 06:30 Plan Activity: advance as tolerated Diet: low fat, low cholesterol, low salt Additional Instructions: 1.Follow up with Primary care physician in one week. 2.Follow-up with Dr. Mckinney in 1 week. 3.No strenous activity unless cleared by Physician. Follow up with: PRIMARY CARE, [Primary Care Provider] - 3-5 Days Prescriptions: Aspirin EC [Aspirin Enteric Coated TAB] 325 mg PO QDAY #30 tablet Clopidogrel [Plavix] 75 mg PO QDAY #30 tablet ISOSORBIDE MONOnitrate [Imdur ER] 30 mg PO QDAY #30 tablet
[2016-11-07] MEDS: ECOTRIN PO SCH (10:33)
[2016-11-07] MEDS: NORVASC PO SCH (10:33)
[2016-11-07] MEDS: PLAVIX PO SCH (10:34)
[2016-11-07] MEDS: LOPRESSOR PO SCH (10:34)
[2016-11-07] MEDS: IMDUR PO SCH (10:34)
[2016-11-07 13:01] VITALS: BP 135/78
--- NOTE | 2016-11-07 14:41 | Progress Note ---
Subjective Date of service: 11/07/16 Interval history: NSTEMI s/p PCI of the RCA Cath is showing evidence of complete mid RCA occlusion with left to right collaterals s/p PCI of the RCA with heavy thrombus burden. Normal LVEF Type II DM Systemic Hypertension Hyperlipidemia Medical therapy for coronary disease to include nitrates, beta qamar, statin and dual antiplatelet therapy with plavix and aspirin. Stable cardiac lyons for discharge home today. [facility] with [facility]. as scheduled . Objective Vital Signs Temp Pulse Pulse Resp BP Pulse Ox 11/07/16 12:20 135/78 84 11/07/16 12:10 63 15 133/63 11/07/16 12:00 67 24 146/78 11/07/16 11:50 64 11 L 135/71 11/07/16 11:40 69 21 143/71 11/07/16 11:30 70 14 143/71 11/07/16 11:20 79 15 146/78 11/07/16 11:10 84 15 134/73 11/07/16 11:00 79 15 134/73 11/07/16 10:50 82 19 144/83 11/07/16 10:40 80 18 146/82 11/07/16 10:34 84 137/79 11/07/16 10:33 84 137/79 11/07/16 10:30 82 32 H 146/82 11/07/16 10:20 81 15 127/76 11/07/16 10:10 79 27 H 127/76 11/07/16 10:00 101 H 22 127/76 11/07/16 09:50 78 35 H 127/76 11/07/16 09:40 76 24 127/76 11/07/16 09:30 75 30 H 127/76 11/07/16 09:20 74 18 127/76 11/07/16 09:10 74 25 H 127/76 11/07/16 09:00 76 12 127/76 11/07/16 08:50 82 13 127/76 11/07/16 08:40 74 14 127/76 11/07/16 08:30 82 14 127/76 11/07/16 08:20 73 17 127/76 11/07/16 08:10 74 13 132/76 11/07/16 08:00 98.5 F 78 78 13 132/76 11/07/16 07:50 70 17 132/73 11/07/16 07:40 70 13 152/72 11/07/16 07:30 69 27 H 152/72 11/07/16 07:20 67 18 152/72 11/07/16 07:10 69 23 152/72 11/07/16 07:00 65 20 152/72 11/07/16 06:50 67 13 152/72 11/07/16 06:40 75 15 152/72 11/07/16 06:30 87 21 152/72 89 11/07/16 06:20 88 21 152/72 11/07/16 06:10 71 22 152/72 98 11/07/16 06:00 70 13 152/72 98 11/07/16 05:50 70 11 L 152/72 98 11/07/16 05:40 74 21 152/72 95 11/07/16 05:30 67 20 152/72 96 11/07/16 05:20 74 22 152/72 95 11/07/16 05:10 68 24 152/72 94 11/07/16 05:00 68 20 152/72 98 11/07/16 04:50 73 22 152/72 98 11/07/16 04:40 63 15 152/72 97 11/07/16 04:30 62 26 H 152/72 99 11/07/16 04:20 61 29 H 152/72 99 11/07/16 04:10 85 24 152/72 83 L 11/07/16 04:00 97.3 F L 62 18 152/72 96 11/07/16 03:50 66 19 152/72 97 11/07/16 03:40 68 22 152/72 96 11/07/16 03:30 64 21 152/72 96 11/07/16 03:20 64 21 152/72 96 06 03:10 65 17 152/72 96 11/07/16 03:00 67 19 152/72 93 11/07/16 02:50 67 21 152/72 97 06 02:40 63 21 152/72 97 11/07/16 02:30 62 20 152/72 96 06 02:20 63 20 152/72 95 11/07/16 02:10 63 21 152/72 97 11/07/16 02:00 61 20 152/72 97 02/06/17 01:50 61 14 152/72 97 11/07/16 01:40 63 20 152/72 96 11/07/16 01:30 80 26 H 152/72 96 11/07/16 01:20 60 17 152/72 97 11/07/16 01:10 60 20 152/72 95 11/07/16 01:00 60 21 152/72 95 11/07/16 00:50 63 21 152/72 96 11/07/16 00:40 60 20 152/72 97 11/07/16 00:30 59 L 24 152/72 96 11/07/16 00:20 66 19 152/72 97 11/07/16 00:10 65 25 H 152/72 96 11/07/16 00:00 97.9 F 68 77 24 152/72 97 11/06/16 23:50 66 14 152/72 98 11/06/16 23:40 64 22 152/72 97 11/06/16 23:30 66 22 152/72 98 11/06/16 23:20 67 14 152/72 98 11/06/16 23:12 61 22 152/72 97 11/06/16 23:10 60 19 152/72 96 11/06/16 23:00 63 13 152/72 99 11/06/16 22:50 65 12 152/72 99 11/06/16 22:40 67 13 152/72 98 11/06/16 22:30 74 23 152/72 98 11/06/16 22:20 69 20 152/72 97 11/06/16 22:10 71 21 152/72 95 11/06/16 22:00 73 80 20 152/72 95 11/06/16 21:50 71 20 152/72 94 11/06/16 21:40 77 22 152/72 95 11/06/16 21:30 76 24 152/72 95 11/06/16 21:20 76 25 H 152/72 95 11/06/16 21:10 76 22 152/72 95 11/06/16 21:02 82 152/72 11/06/16 21:00 77 19 152/72 95 05 20:50 75 23 152/72 96 11/06/16 20:47 25 H 11/06/16 20:40 72 23 152/72 98 02/05/17 20:30 75 19 152/72 97 02/05/17 20:20 81 17 152/72 93 02/05/17 20:10 78 25 H 114/72 02/05/17 20:00 99.2 F 75 25 H 114/72 02/05/17 19:50 76 26 H 131/65 02/05/17 19:40 77 24 140/73 02/05/17 19:30 71 27 H 140/73 02/05/17 19:20 73 26 H 145/72 02/05/17 19:10 70 21 104/68 02/05/17 19:00 73 18 104/68 02/05/17 18:50 74 17 122/59 02/05/17 18:40 68 22 122/89 02/05/17 18:30 67 30 H 122/89 02/05/17 18:20 68 16 122/89 02/05/17 18:10 84 15 122/89 02/05/17 18:00 68 22 122/89 02/05/17 17:50 66 14 122/89 02/05/17 17:40 68 16 122/89 02/05/17 17:30 73 13 122/89 97 02/05/17 17:20 70 25 H 125/84 98 02/05/17 17:10 68 25 H 130/69 97 02/05/17 17:00 66 27 H 130/69 95 02/05/17 16:50 69 17 138/73 98 02/05/17 16:40 69 20 137/72 98 02/05/17 16:30 71 16 137/72 96 02/05/17 16:20 72 11 L 127/65 98 02/05/17 16:10 68 22 129/64 97 02/05/17 16:00 98.6 F 65 27 H 129/64 97 02/05/17 15:50 71 17 124/65 99 02/05/17 15:40 64 21 131/66 95 02/05/17 15:30 62 27 H 131/66 92 02/05/17 15:20 67 27 H 121/64 96 02/05/17 15:10 63 24 126/68 95 02/05/17 15:00 66 21 126/68 94 02/05/17 14:50 60 24 122/63 95 02/05/17 14:40 60 24 132/71 96 - Physical Examination HEENT: Positive: PERRL Neck: Positive: neck supple Neuro: Positive: Grossly Intact Abdomen: Positive: Soft Extremities: Present: normal - Labs and Meds CBC 11/07/16 Range/Units 03:56 Hgb 11.1 (10.1-14.3) gm/dl Hct 32.9 (30.3-42.9) % Plt Count 242 (140-440) K/mm3
== END 2016-11-07 15:05 | disposition home or self-care (01) | DRG 247 ==
LOC: ED 16:39 → CC1 23:19
PROVIDERS: ADMIT Internal Medicine; ATTEND Internal Medicine
PROC: 4A023N8 Measurement of Cardiac Sampling and Pressure, Bilateral, Percutaneous Approach (ICD-10-PCS; 2016-11-04)
PROC: B2151ZZ Fluoroscopy of Left Heart using Low Osmolar Contrast (ICD-10-PCS; 2016-11-04)
PROC: B2111ZZ Fluoroscopy of Multiple Coronary Arteries using Low Osmolar Contrast (ICD-10-PCS; 2016-11-04)
PROC: 027034Z Dilation of Coronary Artery, One Artery with Drug-eluting Intraluminal Device, Percutaneous Approach (ICD-10-PCS; principal; 2016-11-07)
PROC: 02703ZZ Dilation of Coronary Artery, One Artery, Percutaneous Approach (ICD-10-PCS; 2016-11-07)
DX: I21.4 Non-ST elevation (NSTEMI) myocardial infarction (principal); J45.909 Unspecified asthma, uncomplicated; E66.9 Obesity, unspecified; E78.5 Hyperlipidemia, unspecified; E11.9 Type 2 diabetes mellitus without complications; I10 Essential (primary) hypertension; Z90.710 Acquired absence of both cervix and uterus; Z68.32 Body mass index [BMI] 32.0-32.9, adult; Z82.49 Family history of ischemic heart disease and other diseases of the circulatory system; Z79.84 Long term (current) use of oral hypoglycemic drugs
CPT/HCPCS: 36415; 71010; 71020; 71275; 74174; 80048; 80053; 80061; 80307; 82550; 82553; 82962; 83036; 84484; 85007; 85014; 85018; 85025; 85027; 85049; 85347; 85379; 85520; 85610; 85730; 92928; 93005; 93010; 93458; 96374; 96375; 99291; A9270-GY; C1725; C1760; C1769; C1874; C1887; C1894; C9600; J0360; J1170; J1644; J1815; J2250; J2270; J2405; J3010; J3246; J7030; J7040; Q9967